=== PATIENT | male | born 1935 | race Asian ===

== ENCOUNTER 2018-01-28 11:17 | Emergency (ER) | payer OTHER ==
[2018-01-28] MEDS: diphenhydrAMINE HCL 25 MG CAPSULE PO (11:56)
== END 2018-01-28 12:41 | disposition home or self-care (01) ==
LOC: ER 11:17
DX: K13.0 Diseases of lips (principal)
CPT/HCPCS: 99283; Q0163

== ENCOUNTER 2018-04-09 12:20 | Inpatient (IN) | payer OTHER ==
[~2018-04-09] VITALS: Ht 170.2 cm; Wt 59.0 kg
[~2018-04-09 12:20] MED LIST: DIPH25CA58 PO
--- NOTE | 2018-04-09 12:41 | EKG ---
[facility] [address] [place] [address] Test Date: 2018-04-09 Test Time: 12:35:17 Pat Name: ISACC CHISHOLM Department: Room: Gender: M Hydrotherapist: : [id number] Requested By: BETINA CALHOUN Order Number: [id number] Reading MD: Milind Plasencia MD Measurements Intervals [place] Rate: 120 P: 38 WI: 140 QRS: -3 QRSD: 70 T: 39 QT: 306 QTc: 437 Interpretive Statements SINUS TACHYCARDIA NON-SPECIFIC ST/T CHANGES Electronically Signed On 04-13-2018 11:55:08 CDT by Milind Plasencia MD
[2018-04-09] MEDS ORDERED: ACETAMINOPHEN 500 MG TABLET PO ONE (13:15)
[2018-04-09] MEDS ORDERED: IV NORMAL SALINE 1000ML BAG 1,000 ML IV ONE (13:15)
--- NOTE | 2018-04-09 13:15 | RAD ---
Portable chest, 04/09/2018: HISTORY: Fever The heart size is normal. There are bilateral apical pleural-parenchymal opacities compatible with scarring. There are scattered streaky parenchymal opacities in both lungs, more so on the left base and right parahilar region. No pleural fluid is evident. IMPRESSION: Mild streaky atelectasis and/or pneumonitis in the left base and right parahilar region. There may be a component of scarring. Electronically signed by: Raman Guevara MD (04/09/2018 1:12 PM) [facility]
--- NOTE | 2018-04-09 13:29 | PHYS DOC ---
Past Medical History Past Medical History: No Pertinent History Past Surgical History: No Surgical History Alcohol Use: None Drug Use: None Adult General Chief Complaint Chief Complaint: FEVER HPI HPI Patient is a 83 year old male who is presenting to the emergency room with chief complaint of cough and body aches shortness of breath yellow sputum just feeling weak feeling feverish also having posterior head and neck pain for the last 3 or 4 days. Feels generally weak. Review of Systems Review of Systems Eyes: Denies change in visual acuity, redness, or eye pain [] GI: Denies abdominal pain, nausea, vomiting, bloody stools or diarrhea [] : Denies dysuria or hematuria [] Neurologic: Denies focal weakness or sensory changes [] Endocrine: Denies polyuria or polydipsia [] All other systems were reviewed and found to be within normal limits, except as documented in this note. Current Medications Current Medications Current Medications Medications (Trade) Dose Ordered Sig/Jeremias Start Time Stop Time Status Last Admin Dose Admin Acetaminophen (Tylenol) 1,000 mg 1X ONCE 04/09/18 13:15 04/09/18 13:16 DC 04/09/18 14:27 1,000 MG Azithromycin 250 ml @ 250 mls/hr 1X ONCE 04/09/18 14:30 04/09/18 15:29 DC 04/09/18 14:35 250 MLS/HR Ceftriaxone Sodium 50 ml @ 100 mls/hr 1X ONCE 04/09/18 14:45 04/09/18 15:14 DC 04/09/18 14:47 100 MLS/HR Sodium Chloride 1,000 ml @ 1,000 mls/hr 1X ONCE 04/09/18 13:15 04/09/18 14:14 DC 04/09/18 14:21 1,000 MLS/HR Allergies Allergies Allergies Coded Allergies Type Severity Reaction Last Updated Verified No Known Drug Allergies 01/28/18 No Physical Exam Physical Exam Constitutional: Well developed, well nourished, no acute distress, non-toxic appearance. [] HENT: Normocephalic, atraumatic, bilateral external ears normal, oropharynx moist, no oral exudates, nose normal. [] Eyes: PERRLA, EOMI, conjunctiva normal, no discharge. [] Neck: Normal range of motion, no tenderness, very supple, No stridor. [] Cardiovascular: Tachycardic no murmurs Lungs & Thorax: Coarse breath sounds bilaterally with rhonchi at the left lung base and faint wheezing noted Extremities: No tenderness, no cyanosis, no clubbing, ROM intact, no edema. [] Neurologic: Alert and oriented X 3, normal motor function, normal sensory function, no focal deficits noted. [] Psychologic: Affect normal, judgement normal, mood normal. [] Current Patient Data Vital Signs Vital Signs Date Time Temp Pulse Resp B/P (MAP) Pulse Ox O2 Delivery O2 Flow Rate FiO2 04/09/18 12:30 98.8 118 22 112/62 (79) 97 Room Air 2.0 98.8 Lab Values Laboratory Tests Test 04/09/18 14:19 White Blood Count 19.2 x10^3/uL (4.0-11.0) H Red Blood Count 3.62 x10^6/uL (4.30-5.70) L Hemoglobin 9.3 g/dL (13.0-17.5) L Hematocrit 28.7 % (39.0-53.0) L Mean Corpuscular Volume 79 fL (79-100) Mean Corpuscular Hemoglobin 26 pg (25-35) Mean Corpuscular Hemoglobin Concent 32 g/dL (31-37) Red Cell Distribution Width 15.3 % (11.5-14.5) H Platelet Count 276 x10^3/uL (140-400) Neutrophils (%) (Auto) 88 % (31-73) H Lymphocytes (%) (Auto) 4 % (24-48) L Monocytes (%) (Auto) 8 % (0-9) Eosinophils (%) (Auto) 0 % (0-3) Basophils (%) (Auto) 0 % (0-3) Neutrophils # (Auto) 17.0 x10^3uL (1.8-7.7) H Lymphocytes # (Auto) 0.7 x10^3/uL (1.0-4.8) L Monocytes # (Auto) 1.5 x10^3/uL (0.0-1.1) H Eosinophils # (Auto) 0.0 x10^3/uL (0.0-0.7) Basophils # (Auto) 0.0 x10^3/uL (0.0-0.2) Platelet Estimate Pending Prothrombin Time 14.4 SEC (11.7-14.0) H Prothrombin Time INR 1.2 (0.8-1.1) H Sodium Level 137 mmol/L (136-145) Potassium Level 3.9 mmol/L (3.5-5.1) Chloride Level 102 mmol/L (98-107) Carbon Dioxide Level 27 mmol/L (21-32) Anion Gap 8 (6-14) Blood Urea Nitrogen 12 mg/dL (8-26) Creatinine 1.2 mg/dL (0.7-1.3) Estimated GFR (Cockcroft-Gault) 58.0 BUN/Creatinine Ratio 10 (6-20) Glucose Level 102 mg/dL (70-99) H Lactic Acid Level 0.9 mmol/L (0.4-2.0) Calcium Level 8.6 mg/dL (8.5-10.1) Total Bilirubin 0.9 mg/dL (0.2-1.0) Aspartate Amino Transferase (AST) 19 U/L (15-37) Alanine Aminotransferase (ALT) 15 U/L (16-63) L Alkaline Phosphatase 76 U/L (46-116) Troponin I Quantitative < 0.017 ng/mL (0.000-0.055) CJ-Tbc-R-Type Natriuretic Peptide 549 pg/mL (0-449) H Total Protein 8.1 g/dL (6.4-8.2) Albumin 3.2 g/dL (3.4-5.0) L Albumin/Globulin Ratio 0.7 (1.0-1.7) L Lipase 103 U/L (73-393) Procalcitonin 3.86 ng/mL (0.00-0.10) H Laboratory Tests 04/09/18 14:19 Laboratory Tests 04/09/18 14:19 EKG EKG [EKG shows a sinus tachycardia rate of 120 QTC 437 no ischemic changes no STEMI interpreted by me the time of encounter. Radiology/Procedures Radiology/Procedures [] Impressions: Portable chest, 04/09/2018: HISTORY: Fever The heart size is normal. There are bilateral apical pleural-parenchymal opacities compatible with scarring. There are scattered streaky parenchymal opacities in both lungs, more so on the left base and right parahilar region. No pleural fluid is evident. IMPRESSION: Mild streaky atelectasis and/or pneumonitis in the left base and right parahilar region. There may be a component of scarring. Electronically signed by: Yared Guevara MD (04/09/2018 1:12 PM) [facility] DICTATED and SIGNED BY: YARED GUEVARA MD DATE: 04/09/18 1310 Course & Med Decision Making Course & Med Decision Making Pertinent Labs and Imaging studies reviewed. (See chart for details) This is an 83-year-old male is presenting to the emergency room with fever cough bodyaches tachycardia found to have hypoxia on initial evaluation in the mid 80s chest x-ray suggestive of a left basilar pneumonia this is community- acquired patient will be admitted to the hospital for further evaluation blood pressure is okay at this time. So tracks and azithromycin were given and the patient and the patient's GRanDson are agreeable to the plan. Dragon Disclaimer Dragon Disclaimer This electronic medical record was generated, in whole or in part, using a voice recognition dictation system. Departure Departure Impression: Primary Impression: Pneumonia Disposition: 09 ADMITTED INPATIENT Admitting Physician: Hiwot Parks Condition: STABLE Referrals: UNKNOWN PCP NAME (PCP) BETINA CALHOUN MD Apr 09, 2018 13:29
[2018-04-09] MEDS ORDERED: AZITHRMYCN 500MG IVPB FOR OMNI 250 ML IV ONE (14:30)
[2018-04-09 14:55] LABS: CALCIUM 8.6 mg/dL (8.5-10.1); CREATININE 1.2 mg/dL (0.7-1.3); POTASSIUM 3.9 mmol/L (3.5-5.1)
[2018-04-09 15:00] LABS: ALBUMIN 3.2 g/dL (3.4-5.0); ALBUMIN/GLOBULIN RATIO 0.7 (1.0-1.7); TOTAL BILIRUBIN 0.9 mg/dL (0.2-1.0); TOTAL PROTEIN 8.1 g/dL (6.4-8.2)
[2018-04-09 15:01] LABS: PROTHROMBIN TIME PATIENT 14.4 SEC (11.7-14.0)
[2018-04-09 15:03] LABS: BASO % 0 % (0-3); EOS % 0 % (0-3); HEMATOCRIT 28.7 % (39.0-53.0); HEMOGLOBIN 9.3 g/dL (13.0-17.5); LYMPH # 0.7 x10^3/uL (1.0-4.8); LYMPH % 4 % (24-48); MEAN CORPUSCULAR HEMOGLOBIN 26 pg (25-35); MEAN CORPUSCULAR HGB CONC 32 g/dL (31-37); MEAN CORPUSCULAR VOLUME 79 fL (79-100); MONO # 1.5 x10^3/uL (0.0-1.1); MONO % 8 % (0-9); NEUT % 88 % (31-73); PLATELET COUNT 276 x10^3/uL (140-400); RED BLOOD COUNT 3.62 x10^6/uL (4.30-5.70); RED CELL DISTRIBUTION WIDTH 15.3 % (11.5-14.5); WHITE BLOOD COUNT 19.2 x10^3/uL (4.0-11.0)
[2018-04-09 16:39] LABS: % BANDS 11 % (0-9); % LYMPHS 8 % (24-48); % METAS 1 % (0-0); % MONOS 6 % (0-10); % SEGS 74 % (35-66)
[2018-04-09 16:40] LABS: PLT ESTIMATE ADEQUATE (ADEQUATE)
[2018-04-09] MEDS ORDERED: MIRT30TA PO (17:04)
[2018-04-09 17:34] VITALS: BP 85/53
[2018-04-09 17:50] VITALS: BP 100/64
[2018-04-09] MEDS: ACETAMINOPHEN 325 MG TABLET. PO PRN (17:51)
[2018-04-09 19:00] VITALS: BP 91/56
[2018-04-09] MEDS: IPRATRPIUM/ALBUTEROL 0.5/2.5MG 3 ML NEBU. NEB SCH (20:00)
[2018-04-09] MEDS ORDERED: cefTRIAXone IV Push 1 GM VIAL. IVP SCH (20:00)
--- NOTE | 2018-04-09 21:05 | HP ---
ADMIT DATE: 04/09/2018 CHIEF COMPLAINT: Shortness of breath and cough. HISTORY OF PRESENT ILLNESS: The patient is a pleasant 83-year-old male who is from [facility]. He presented with shortness of breath and cough. He has got associated body aches, been occurring for several days. States he is feeling weak and feverish and had a productive cough. We did a chest x-ray in the ER showing pneumonia and he is also hypoxic. I have discussed the case with the ER physician. We are going to admit the patient and consult Pulmonary. PAST MEDICAL HISTORY: Depression. ALLERGIES: None. FAMILY HISTORY: Hypertension. SOCIAL HISTORY: Does not drink, smoke or take drugs. He is from [facility]. MEDICATIONS: Reviewed, please refer to the MRAD. He is on Remeron and Benadryl. REVIEW OF SYSTEMS: GENERAL: No history of weight change, weakness or fevers. SKIN: No bruising, hair changes or rashes. EYES: No blurred, double or loss of vision. NOSE AND THROAT: No history of nosebleeds, hoarseness or sore throat. HEART: No history of palpitations, chest pain or shortness of breath on exertion. PULMONARY: The patient complains of shortness breath and cough. GASTROINTESTINAL: Denies changes in appetite, nausea, vomiting, diarrhea or constipation. GENITOURINARY: No history of frequency, urgency, hesitancy or nocturia. NEUROLOGIC: Denies history of numbness, tingling, tremor or weakness. PSYCHIATRIC: No history of panic, anxiety or depression. ENDOCRINE: No history of heat or cold intolerance, polyuria or polydipsia. EXTREMITIES: Denies muscle weakness, joint pain, pain on walking or stiffness. PHYSICAL EXAMINATION: VITAL SIGNS: Temperature 98, pulse 80, respirations 18 AND blood pressure ranging from 103/66-85/53. GENERAL: He is alert and cooperative. His son is present. HEART: Normal S1 and S2. LUNGS: Coarse. ABDOMEN: Soft. EXTREMITIES: No edema. SKIN: No rashes. ENDOCRINE: No thyromegaly. LYMPHATICS: No cervical nodes. HEMATOPOIETIC: No bruising. LABORATORY DATA: White count is 19. RADIOLOGICAL DATA: Chest x-ray shows pneumonia. ASSESSMENT AND PLAN: Pneumonia and leukocytosis. The patient has been admitted. We will start IV antibiotics, breathing treatments and oxygen. Consult Pulmonary. Continue home meds, IV fluids, PT, OT and frequent labs. EVAN MENDIOLA DO DR: EDMUND/kehinde JOB#: [id number] / [id number]
[2018-04-09 23:00] VITALS: BP 98/53
[2018-04-10 03:59] VITALS: BP 100/60
[2018-04-10 07:00] VITALS: BP 100/57
[2018-04-10] MEDS: IPRATRPIUM/ALBUTEROL 0.5/2.5MG 3 ML NEBU. NEB SCH ×4 (07:13→19:26)
[2018-04-10] MEDS: ACETAMINOPHEN 325 MG TABLET. PO PRN (08:42)
[2018-04-10] MEDS ORDERED: MORPHINE SULFATE 2 MG/ML VIAL. IV PRN (08:45)
[2018-04-10] MEDS ORDERED: HYDROcodone/APAP 5/325MG 1 TAB TABLET PO PRN (08:45)
[2018-04-10] MEDS ORDERED: MIRT15TA2 PO (10:17)
--- NOTE | 2018-04-10 10:46 | PDOC ---
PROGRESS NOTES Chief Complaint Chief Complaint CAP pneumonia Never smoker Sepsis POA, no organ dysfunction Leukocytosis, tachycardia Accelerated hypertension POA History of Present Illness History of Present Illness NO Complaints, feels he is getting better WBC 19, hemoglobin 9, platelets okay Tachycardic still high 90s Never smoker Plan: Continue Rocephin I did add azithromycin today Recheck labs tomorrow PT OT Pro calcitonin is elevated, recheck lactate tomorrow and labs tomorrow If labs are better tomorrow, and feeling sampson, ambulating- well can discharge tomorrow. But I would not discharge him today. d/w with multiple family members at bedside Vitals Vitals Vital Signs Date Time Temp Pulse Resp B/P (MAP) Pulse Ox O2 Delivery O2 Flow Rate FiO2 04/10/18 07:13 99 Nasal Cannula 2.0 04/10/18 07:00 98.2 119 20 100/57 (71) 98.2 Physical Exam General: Alert, Oriented X3, Cooperative Heart: Regular rate Lungs: Crackles Abdomen: Normal bowel sounds, Soft Extremities: No clubbing, No cyanosis Skin: No rashes, No breakdown, No significant lesion Labs LABS Laboratory Tests Test 04/09/18 14:19 White Blood Count 19.2 x10^3/uL (4.0-11.0) Red Blood Count 3.62 x10^6/uL (4.30-5.70) Hemoglobin 9.3 g/dL (13.0-17.5) Hematocrit 28.7 % (39.0-53.0) Mean Corpuscular Volume 79 fL (79-100) Mean Corpuscular Hemoglobin 26 pg (25-35) Mean Corpuscular Hemoglobin Concent 32 g/dL (31-37) Red Cell Distribution Width 15.3 % (11.5-14.5) Platelet Count 276 x10^3/uL (140-400) Neutrophils (%) (Auto) 88 % (31-73) Lymphocytes (%) (Auto) 4 % (24-48) Monocytes (%) (Auto) 8 % (0-9) Eosinophils (%) (Auto) 0 % (0-3) Basophils (%) (Auto) 0 % (0-3) Neutrophils # (Auto) 17.0 x10^3uL (1.8-7.7) Lymphocytes # (Auto) 0.7 x10^3/uL (1.0-4.8) Monocytes # (Auto) 1.5 x10^3/uL (0.0-1.1) Eosinophils # (Auto) 0.0 x10^3/uL (0.0-0.7) Basophils # (Auto) 0.0 x10^3/uL (0.0-0.2) Segmented Neutrophils % 74 % (35-66) Band Neutrophils % 11 % (0-9) Lymphocytes % 8 % (24-48) Monocytes % 6 % (0-10) Metamyelocytes % 1 % (0-0) Platelet Estimate Adequate (ADEQUATE) Prothrombin Time 14.4 SEC (11.7-14.0) Prothromb Time International Ratio 1.2 (0.8-1.1) Sodium Level 137 mmol/L (136-145) Potassium Level 3.9 mmol/L (3.5-5.1) Chloride Level 102 mmol/L (98-107) Carbon Dioxide Level 27 mmol/L (21-32) Anion Gap 8 (6-14) Blood Urea Nitrogen 12 mg/dL (8-26) Creatinine 1.2 mg/dL (0.7-1.3) Estimated GFR (Cockcroft-Gault) 58.0 BUN/Creatinine Ratio 10 (6-20) Glucose Level 102 mg/dL (70-99) Lactic Acid Level 0.9 mmol/L (0.4-2.0) Calcium Level 8.6 mg/dL (8.5-10.1) Total Bilirubin 0.9 mg/dL (0.2-1.0) Aspartate Amino Transf (AST/SGOT) 19 U/L (15-37) Alanine Aminotransferase (ALT/SGPT) 15 U/L (16-63) Alkaline Phosphatase 76 U/L (46-116) Troponin I Quantitative < 0.017 ng/mL (0.000-0.055) WX-Otx-P-Type Natriuretic Peptide 549 pg/mL (0-449) Total Protein 8.1 g/dL (6.4-8.2) Albumin 3.2 g/dL (3.4-5.0) Albumin/Globulin Ratio 0.7 (1.0-1.7) Lipase 103 U/L (73-393) Procalcitonin 3.86 ng/mL (0.00-0.10) Review of Systems Review of Systems A 14 point ROS was completed with the following noted as positive: Other systems reviewed and negative. \CONSTITUTIONAL: No fever or chills EYES: No recent changes SKIN: No rash or itching CARDIOVASCULAR: No chest pain, syncope, palpitations, or edema RESPIRATORY: No SOB or cough GASTROINTESTINAL: No nausea, vomiting or abdominal pain NEUROLOGICAL: No headaches or weakness ENDOCRINE: No cold or heat intolerance GENITOURINARY: No urgency or frequency of urination MUSCULOSKELETAL: No back pain or joint pain LYMPHATICS: No enlarged lymph nodes PSYCHIATRIC: No anxiety or depression Assessment and Plan Assessmemt and Plan Problems Medical Problems: (1) Pneumonia Status: Acute Comment Review of Relevant I have reviewed the following items ananda (where applicable) has been applied. Labs Laboratory Tests Test 04/09/18 14:19 White Blood Count 19.2 x10^3/uL (4.0-11.0) Red Blood Count 3.62 x10^6/uL (4.30-5.70) Hemoglobin 9.3 g/dL (13.0-17.5) Hematocrit 28.7 % (39.0-53.0) Mean Corpuscular Volume 79 fL (79-100) Mean Corpuscular Hemoglobin 26 pg (25-35) Mean Corpuscular Hemoglobin Concent 32 g/dL (31-37) Red Cell Distribution Width 15.3 % (11.5-14.5) Platelet Count 276 x10^3/uL (140-400) Neutrophils (%) (Auto) 88 % (31-73) Lymphocytes (%) (Auto) 4 % (24-48) Monocytes (%) (Auto) 8 % (0-9) Eosinophils (%) (Auto) 0 % (0-3) Basophils (%) (Auto) 0 % (0-3) Neutrophils # (Auto) 17.0 x10^3uL (1.8-7.7) Lymphocytes # (Auto) 0.7 x10^3/uL (1.0-4.8) Monocytes # (Auto) 1.5 x10^3/uL (0.0-1.1) Eosinophils # (Auto) 0.0 x10^3/uL (0.0-0.7) Basophils # (Auto) 0.0 x10^3/uL (0.0-0.2) Segmented Neutrophils % 74 % (35-66) Band Neutrophils % 11 % (0-9) Lymphocytes % 8 % (24-48) Monocytes % 6 % (0-10) Metamyelocytes % 1 % (0-0) Platelet Estimate Adequate (ADEQUATE) Prothrombin Time 14.4 SEC (11.7-14.0) Prothromb Time International Ratio 1.2 (0.8-1.1) Sodium Level 137 mmol/L (136-145) Potassium Level 3.9 mmol/L (3.5-5.1) Chloride Level 102 mmol/L (98-107) Carbon Dioxide Level 27 mmol/L (21-32) Anion Gap 8 (6-14) Blood Urea Nitrogen 12 mg/dL (8-26) Creatinine 1.2 mg/dL (0.7-1.3) Estimated GFR (Cockcroft-Gault) 58.0 BUN/Creatinine Ratio 10 (6-20) Glucose Level 102 mg/dL (70-99) Lactic Acid Level 0.9 mmol/L (0.4-2.0) Calcium Level 8.6 mg/dL (8.5-10.1) Total Bilirubin 0.9 mg/dL (0.2-1.0) Aspartate Amino Transf (AST/SGOT) 19 U/L (15-37) Alanine Aminotransferase (ALT/SGPT) 15 U/L (16-63) Alkaline Phosphatase 76 U/L (46-116) Troponin I Quantitative < 0.017 ng/mL (0.000-0.055) MV-Hbu-C-Type Natriuretic Peptide 549 pg/mL (0-449) Total Protein 8.1 g/dL (6.4-8.2) Albumin 3.2 g/dL (3.4-5.0) Albumin/Globulin Ratio 0.7 (1.0-1.7) Lipase 103 U/L (73-393) Procalcitonin 3.86 ng/mL (0.00-0.10) Laboratory Tests Test 04/09/18 14:19 White Blood Count 19.2 x10^3/uL (4.0-11.0) Red Blood Count 3.62 x10^6/uL (4.30-5.70) Hemoglobin 9.3 g/dL (13.0-17.5) Hematocrit 28.7 % (39.0-53.0) Mean Corpuscular Volume 79 fL (79-100) Mean Corpuscular Hemoglobin 26 pg (25-35) Mean Corpuscular Hemoglobin Concent 32 g/dL (31-37) Red Cell Distribution Width 15.3 % (11.5-14.5) Platelet Count 276 x10^3/uL (140-400) Neutrophils (%) (Auto) 88 % (31-73) Lymphocytes (%) (Auto) 4 % (24-48) Monocytes (%) (Auto) 8 % (0-9) Eosinophils (%) (Auto) 0 % (0-3) Basophils (%) (Auto) 0 % (0-3) Neutrophils # (Auto) 17.0 x10^3uL (1.8-7.7) Lymphocytes # (Auto) 0.7 x10^3/uL (1.0-4.8) Monocytes # (Auto) 1.5 x10^3/uL (0.0-1.1) Eosinophils # (Auto) 0.0 x10^3/uL (0.0-0.7) Basophils # (Auto) 0.0 x10^3/uL (0.0-0.2) Segmented Neutrophils % 74 % (35-66) Band Neutrophils % 11 % (0-9) Lymphocytes % 8 % (24-48) Monocytes % 6 % (0-10) Metamyelocytes % 1 % (0-0) Platelet Estimate Adequate (ADEQUATE) Prothrombin Time 14.4 SEC (11.7-14.0) Prothromb Time International Ratio 1.2 (0.8-1.1) Sodium Level 137 mmol/L (136-145) Potassium Level 3.9 mmol/L (3.5-5.1) Chloride Level 102 mmol/L (98-107) Carbon Dioxide Level 27 mmol/L (21-32) Anion Gap 8 (6-14) Blood Urea Nitrogen 12 mg/dL (8-26) Creatinine 1.2 mg/dL (0.7-1.3) Estimated GFR (Cockcroft-Gault) 58.0 BUN/Creatinine Ratio 10 (6-20) Glucose Level 102 mg/dL (70-99) Lactic Acid Level 0.9 mmol/L (0.4-2.0) Calcium Level 8.6 mg/dL (8.5-10.1) Total Bilirubin 0.9 mg/dL (0.2-1.0) Aspartate Amino Transf (AST/SGOT) 19 U/L (15-37) Alanine Aminotransferase (ALT/SGPT) 15 U/L (16-63) Alkaline Phosphatase 76 U/L (46-116) Troponin I Quantitative < 0.017 ng/mL (0.000-0.055) NT-Wcf-U-Type Natriuretic Peptide 549 pg/mL (0-449) Total Protein 8.1 g/dL (6.4-8.2) Albumin 3.2 g/dL (3.4-5.0) Albumin/Globulin Ratio 0.7 (1.0-1.7) Lipase 103 U/L (73-393) Procalcitonin 3.86 ng/mL (0.00-0.10) Medications Current Medications Sodium Chloride 1,000 ml @ 1,000 mls/hr 1X ONCE IV Last administered on at 14:21; Start 04/09/18 at 13:15; Stop 04/09/18 at 14:14; Status DC Acetaminophen (Tylenol) 1,000 mg 1X ONCE PO Last administered on 04/09/18at 14: 27; Start 04/09/18 at 13:15; Stop 04/09/18 at 13:16; Status DC Ceftriaxone Sodium 50 ml @ 100 mls/hr 1X ONCE IV ; Start 04/09/18 at 14:00; Stop 04/09/18 at 14:29; Status DC Azithromycin 250 ml @ 250 mls/hr 1X ONCE IV Last administered on 04/09/18at 14 :35; Start 04/09/18 at 14:30; Stop 04/09/18 at 15:29; Status DC Ceftriaxone Sodium 50 ml @ 100 mls/hr 1X ONCE IV Last administered on at 14:47; Start 04/09/18 at 14:45; Stop 04/09/18 at 15:14; Status DC Acetaminophen (Tylenol) 650 mg PRN Q6HRS PRN PO MILD PAIN / TEMP Last administered on 04/10/18at 08:42; Start 04/09/18 at 17:00 Ceftriaxone Sodium 1 gm/ Dextrose 50 ml @ 100 mls/hr Q24H IV ; Start 04/09/18 at 19:45; Status UNV Albuterol/ Ipratropium (Duoneb) 3 ml RTQID NEB Last administered on 04/10/18at 07 :13; Start 04/09/18 at 20:00 Ceftriaxone Sodium (Rocephin) 1 gm Q24H IVP ; Start 04/09/18 at 20:00; Stop at 20:00; Status DC Ceftriaxone Sodium (Rocephin) 1 gm Q24H IVP ; Start 04/10/18 at 15:00 Guaifenesin (Robitussin Dm) 10 ml PRN Q6HRS PRN PO COUGH; Start 04/10/18 at 08: 45 Acetaminophen/ Hydrocodone Bitart (Lortab 5/325) 1 tab PRN Q4HRS PRN PO PAIN; Start 04/10/18 at 08:45 Morphine Sulfate (Morphine Sulfate) 1 mg PRN Q2HR PRN IV PAIN; Start 04/10/18 at 08:45 Diphenhydramine HCl (Benadryl) 25 mg Q8HRS PO ; Start 04/10/18 at 14:00; Stop 04/10/18 at 14:00; Status DC Non-Formulary Medication (Mirtazapine (Remeron)) 30 mg BIDAC PO ; Start 04/10/18 at 16:30; Status UNV Diphenhydramine HCl (Benadryl) 25 mg Q8HRS PRN PO itvh; Start 04/10/18 at 14:00 Mirtazapine (Remeron) 7.5 mg BIDACLD PO ; Start 04/10/18 at 11:30 Active Scripts Active Benadryl (Diphenhydramine Hcl) 25 Mg Capsule 25 Mg PO Q8HRS Reported Remeron (Mirtazapine) 15 Mg Tab.rapdis 7.5 Mg PO BIDACLD Vitals/I & O Vital Sign - Last 24 Hours 04/09/18 04/09/18 04/09/18 04/09/18 12:30 14:30 15:00 15:30 Temp 98.8 98.8 Pulse 118 104 104 102 Resp 22 15 17 20 B/P (MAP) 112/62 (79) 118/68 (85) 103/66 (78) 93/59 (70) Pulse Ox 97 97 97 97 O2 Delivery Room Air Nasal Cannula Nasal Cannula Nasal Cannula O2 Flow Rate 2.0 2.0 2.0 2.0 04/09/18 04/09/18 04/09/18 04/09/18 16:00 17:22 17:34 17:50 Temp 98.5 98.5 Pulse 94 89 92 Resp 18 18 B/P (MAP) 100/60 (73) 85/53 (64) 100/64 (76) Pulse Ox 99 95 O2 Delivery Nasal Cannula Nasal Cannula Nasal Cannula O2 Flow Rate 2.0 2.0 2.0 04/09/18 04/09/18 04/09/18 04/09/18 19:00 20:15 20:30 23:00 Temp 98.2 98.3 98.2 98.3 Pulse 84 99 Resp 18 16 B/P (MAP) 91/56 (68) 98/53 (68) Pulse Ox 96 94 91 O2 Delivery Room Air Nasal Cannula Nasal Cannula Room Air O2 Flow Rate 3.0 2.0 04/10/18 04/10/18 04/10/18 03:59 07:00 07:13 Temp 98.4 98.2 98.4 98.2 Pulse 97 119 Resp 19 20 B/P (MAP) 100/60 (73) 100/57 (71) Pulse Ox 95 96 99 O2 Delivery Nasal Cannula Nasal Cannula Nasal Cannula O2 Flow Rate 2.0 2.0 2.0 Intake and Output 04/09/18 04/09/18 04/10/18 15:00 23:00 07:00 Intake Total 1600 ml Output Total 0 ml Balance 1600 ml 0 ml LYDIA MEJIA MD Apr 10, 2018 10:46
[2018-04-10 11:19] VITALS: BP 99/60
--- NOTE | 2018-04-10 13:33 | PDOC ---
PULMONARY PROGRESS NOTES Vitals Vital Signs Date Time Temp Pulse Resp B/P (MAP) Pulse Ox O2 Delivery O2 Flow Rate FiO2 04/10/18 11:36 99 Nasal Cannula 2.0 04/10/18 11:19 98.4 100 20 99/60 (73) 98.4 Lungs: Crackles Labs Laboratory Tests Test 04/09/18 14:19 White Blood Count 19.2 x10^3/uL (4.0-11.0) Red Blood Count 3.62 x10^6/uL (4.30-5.70) Hemoglobin 9.3 g/dL (13.0-17.5) Hematocrit 28.7 % (39.0-53.0) Mean Corpuscular Volume 79 fL (79-100) Mean Corpuscular Hemoglobin 26 pg (25-35) Mean Corpuscular Hemoglobin Concent 32 g/dL (31-37) Red Cell Distribution Width 15.3 % (11.5-14.5) Platelet Count 276 x10^3/uL (140-400) Neutrophils (%) (Auto) 88 % (31-73) Lymphocytes (%) (Auto) 4 % (24-48) Monocytes (%) (Auto) 8 % (0-9) Eosinophils (%) (Auto) 0 % (0-3) Basophils (%) (Auto) 0 % (0-3) Neutrophils # (Auto) 17.0 x10^3uL (1.8-7.7) Lymphocytes # (Auto) 0.7 x10^3/uL (1.0-4.8) Monocytes # (Auto) 1.5 x10^3/uL (0.0-1.1) Eosinophils # (Auto) 0.0 x10^3/uL (0.0-0.7) Basophils # (Auto) 0.0 x10^3/uL (0.0-0.2) Segmented Neutrophils % 74 % (35-66) Band Neutrophils % 11 % (0-9) Lymphocytes % 8 % (24-48) Monocytes % 6 % (0-10) Metamyelocytes % 1 % (0-0) Platelet Estimate Adequate (ADEQUATE) Prothrombin Time 14.4 SEC (11.7-14.0) Prothromb Time International Ratio 1.2 (0.8-1.1) Sodium Level 137 mmol/L (136-145) Potassium Level 3.9 mmol/L (3.5-5.1) Chloride Level 102 mmol/L (98-107) Carbon Dioxide Level 27 mmol/L (21-32) Anion Gap 8 (6-14) Blood Urea Nitrogen 12 mg/dL (8-26) Creatinine 1.2 mg/dL (0.7-1.3) Estimated GFR (Cockcroft-Gault) 58.0 BUN/Creatinine Ratio 10 (6-20) Glucose Level 102 mg/dL (70-99) Lactic Acid Level 0.9 mmol/L (0.4-2.0) Calcium Level 8.6 mg/dL (8.5-10.1) Total Bilirubin 0.9 mg/dL (0.2-1.0) Aspartate Amino Transf (AST/SGOT) 19 U/L (15-37) Alanine Aminotransferase (ALT/SGPT) 15 U/L (16-63) Alkaline Phosphatase 76 U/L (46-116) Troponin I Quantitative < 0.017 ng/mL (0.000-0.055) WH-Bbr-W-Type Natriuretic Peptide 549 pg/mL (0-449) Total Protein 8.1 g/dL (6.4-8.2) Albumin 3.2 g/dL (3.4-5.0) Albumin/Globulin Ratio 0.7 (1.0-1.7) Lipase 103 U/L (73-393) Procalcitonin 3.86 ng/mL (0.00-0.10) Laboratory Tests Test 04/09/18 14:19 White Blood Count 19.2 x10^3/uL (4.0-11.0) Red Blood Count 3.62 x10^6/uL (4.30-5.70) Hemoglobin 9.3 g/dL (13.0-17.5) Hematocrit 28.7 % (39.0-53.0) Mean Corpuscular Volume 79 fL (79-100) Mean Corpuscular Hemoglobin 26 pg (25-35) Mean Corpuscular Hemoglobin Concent 32 g/dL (31-37) Red Cell Distribution Width 15.3 % (11.5-14.5) Platelet Count 276 x10^3/uL (140-400) Neutrophils (%) (Auto) 88 % (31-73) Lymphocytes (%) (Auto) 4 % (24-48) Monocytes (%) (Auto) 8 % (0-9) Eosinophils (%) (Auto) 0 % (0-3) Basophils (%) (Auto) 0 % (0-3) Neutrophils # (Auto) 17.0 x10^3uL (1.8-7.7) Lymphocytes # (Auto) 0.7 x10^3/uL (1.0-4.8) Monocytes # (Auto) 1.5 x10^3/uL (0.0-1.1) Eosinophils # (Auto) 0.0 x10^3/uL (0.0-0.7) Basophils # (Auto) 0.0 x10^3/uL (0.0-0.2) Segmented Neutrophils % 74 % (35-66) Band Neutrophils % 11 % (0-9) Lymphocytes % 8 % (24-48) Monocytes % 6 % (0-10) Metamyelocytes % 1 % (0-0) Platelet Estimate Adequate (ADEQUATE) Prothrombin Time 14.4 SEC (11.7-14.0) Prothromb Time International Ratio 1.2 (0.8-1.1) Sodium Level 137 mmol/L (136-145) Potassium Level 3.9 mmol/L (3.5-5.1) Chloride Level 102 mmol/L (98-107) Carbon Dioxide Level 27 mmol/L (21-32) Anion Gap 8 (6-14) Blood Urea Nitrogen 12 mg/dL (8-26) Creatinine 1.2 mg/dL (0.7-1.3) Estimated GFR (Cockcroft-Gault) 58.0 BUN/Creatinine Ratio 10 (6-20) Glucose Level 102 mg/dL (70-99) Lactic Acid Level 0.9 mmol/L (0.4-2.0) Calcium Level 8.6 mg/dL (8.5-10.1) Total Bilirubin 0.9 mg/dL (0.2-1.0) Aspartate Amino Transf (AST/SGOT) 19 U/L (15-37) Alanine Aminotransferase (ALT/SGPT) 15 U/L (16-63) Alkaline Phosphatase 76 U/L (46-116) Troponin I Quantitative < 0.017 ng/mL (0.000-0.055) XG-Rir-Z-Type Natriuretic Peptide 549 pg/mL (0-449) Total Protein 8.1 g/dL (6.4-8.2) Albumin 3.2 g/dL (3.4-5.0) Albumin/Globulin Ratio 0.7 (1.0-1.7) Lipase 103 U/L (73-393) Procalcitonin 3.86 ng/mL (0.00-0.10) Medications Active Scripts Medications Dose Route/Sig Max Daily Dose Days Date Category Remeron (Mirtazapine) 15 Mg Tab.rapdis 7.5 Mg PO BIDACLD 04/10/18 Reported Benadryl (Diphenhydramine Hcl) 25 Mg Capsule 25 Mg PO Q8HRS 01/28/18 Rx Impression . FULL CONSULT DICTATED PNEUMONIA AGREE WITH CURRENT RX THANKS LYSSA PATEL MD Apr 10, 2018 13:33
[2018-04-10] MEDS ORDERED: diphenhydrAMINE HCL 25 MG CAPSULE PO PRN (14:00)
[2018-04-10] MEDS ORDERED: diphenhydrAMINE HCL 25 MG CAPSULE PO SCH (14:00)
[2018-04-10 15:00] VITALS: BP 114/64
[2018-04-10] MEDS: cefTRIAXone IV Push 1 GM VIAL. IVP SCH (15:01)
[2018-04-10] MEDS: MIRTAZAPINE 7.5 MG TABLET. PO SCH ×2 (15:01→16:30)
[2018-04-10] MEDS: AZITHROMYCIN 500 MG in IV NORMAL SALINE 250ML 250 ML IV SCH (15:02)
[2018-04-10] MEDS ORDERED: MIRTAZAPINE 30 MG PO SCH (16:30)
[2018-04-10 19:00] VITALS: BP 130/79
[2018-04-10] MEDS: guaiFENesin DM 200MG/20MG 10 ML SYRUP PO PRN (19:47)
[2018-04-10] MEDS: LACTOBACILLUS RHAMNOSUS GG 1 CAPSULE. PO SCH (20:53)
[2018-04-10] MEDS ORDERED: IBUPROFEN 600 MG TABLET. PO PRN (21:00)
[2018-04-10 23:00] VITALS: BP 138/78
--- NOTE | 2018-04-11 02:53 | CONS ---
DATE OF CONSULTATION: 04/10/2018 ATTENDING PHYSICIAN: Dr. Rogers. REASON FOR CONSULTATION: The patient seen in pulmonary consultation at the request of Dr. Rogers for abnormal x-ray. HISTORY OF PRESENT ILLNESS: The patient is an 83-year-old that presented with multiple constitutional complaints, cough, body ache, shortness of breath, sputum production. He is from [facility]. His family was at the bedside translating. He came in with the above complaints. No hemoptysis. He has never smoked. The chest x-ray was obtained in the Emergency Room revealing left lower lobe and right perihilar infiltrate. I was asked to see him in consultation. No nausea, vomiting, diarrhea. PAST MEDICAL HISTORY: Otherwise remarkable for depression. ALLERGIES: No known drug allergies. FAMILY HISTORY: Hypertension. SOCIAL HISTORY: He has never smoked. Denies any alcohol intake. CURRENT MEDICATIONS: List was reviewed. REVIEW OF SYSTEMS: CONSTITUTIONAL: No fever or chills. EYES: No change in visual acuity. HEENT: No nasal congestion or sore throat. PULMONARY: As indicated above. CARDIOVASCULAR: No chest pain. No pressure. GASTROINTESTINAL: No nausea, vomiting, or diarrhea. GENITOURINARY: No dysuria or frequency. MUSCULOSKELETAL: No localized muscle aches or joint pains. SKIN: No new skin rashes. MEDICATION: Medication list was reviewed. PHYSICAL EXAMINATION: GENERAL: The patient was in no respiratory distress. VITAL SIGNS: T-max was 98.5 and 98.8. HEENT: Eyes, the sclerae were nonicteric. NECK: Jugular venous distention was not elevated. No lymphadenopathy. CHEST: Full expansion. LUNGS: Crackles in the bases, otherwise no wheezes. CARDIOVASCULAR: Regular rate and rhythm with S1, S2, no S3. ABDOMEN: Soft, nontender, nondistended. EXTREMITIES: No clubbing, cyanosis or edema. IMPRESSION: 1. Acute respiratory failure. 2. Pneumonia. 3. Abnormal x-ray. PLAN: 1. Continue oxygen supplementation. 2. IV antibiotics. 3. The patient presented in the Emergency Room with O2 sats of 80%. We will perform a 6-minute walk prior to discharge. I do appreciate the privilege in sharing this patient's care. LYSSA PATEL MD DR: KATE/kehinde JOB#: [id number] / [id number]
[2018-04-11 03:00] VITALS: BP 137/69
[2018-04-11 03:40] LABS: BILIRUBIN,URINE NEGATIVE (NEG); CLARITY,URINE CLEAR; COLOR,URINE YELLOW; NITRITE,URINE NEGATIVE (NEG); PH,URINE 6.5; PROTEIN,URINE NEGATIVE (NEG-TRACE); UROBILINOGEN,URINE 0.2 mg/dL (0.2 mg/dL)
[2018-04-11 03:59] LABS: BACTERIA,URINE 0 /HPF (0-FEW); RBC,URINE OCC /HPF (0-2); SQUAMOUS EPITHELIAL CELL,UR OCC /LPF; WBC,URINE OCC /HPF (0-4)
[2018-04-11 05:10] LABS: BASO % 0 % (0-3); EOS # 0.1 x10^3/uL (0.0-0.7); EOS % 1 % (0-3); HEMATOCRIT 24.4 % (39.0-53.0); HEMOGLOBIN 7.9 g/dL (13.0-17.5); LYMPH # 0.9 x10^3/uL (1.0-4.8); LYMPH % 11 % (24-48); MEAN CORPUSCULAR HEMOGLOBIN 26 pg (25-35); MEAN CORPUSCULAR HGB CONC 33 g/dL (31-37); MEAN CORPUSCULAR VOLUME 79 fL (79-100); MONO # 0.8 x10^3/uL (0.0-1.1); MONO % 10 % (0-9); NEUT # 6.4 x10^3uL (1.8-7.7); NEUT % 78 % (31-73); PLATELET COUNT 236 x10^3/uL (140-400); RED BLOOD COUNT 3.08 x10^6/uL (4.30-5.70); RED CELL DISTRIBUTION WIDTH 15.4 % (11.5-14.5); WHITE BLOOD COUNT 8.2 x10^3/uL (4.0-11.0)
[2018-04-11 05:21] LABS: CALCIUM 7.9 mg/dL (8.5-10.1); CREATININE 0.9 mg/dL (0.7-1.3); GFR 80.8; POTASSIUM 3.2 mmol/L (3.5-5.1)
[2018-04-11 07:00] VITALS: BP 130/76
[2018-04-11] MEDS: IPRATRPIUM/ALBUTEROL 0.5/2.5MG 3 ML NEBU. NEB SCH ×4 (07:22→19:39)
[2018-04-11] MEDS ORDERED: POTASSIUM CHLORIDE 20 MEQ TABLET.ER. PO ONE (09:30)
[2018-04-11] MEDS ORDERED: BENZ100C PO (09:35)
[2018-04-11] MEDS ORDERED: PROAIR HFA8.5 GM INH (09:35)
[2018-04-11] MEDS ORDERED: LEVO500T59 PO (09:35)
--- NOTE | 2018-04-11 09:40 | PDOC3 ---
Discharge Summary Visit Information Date of Admission: Apr 09, 2018 Date of Discharge: Apr 11, 2018 Admitting Diagnosis Comment: CAP pneumonia Never smoker Sepsis POA, no organ dysfunction Leukocytosis, tachycardia Accelerated hypertension POA TACHYCARDIA, SINUS Final Diagnosis Problems Medical Problems: (1) Pneumonia Status: Acute Brief Hospital Course Allergies Allergies Coded Allergies Type Severity Reaction Last Updated Verified No Known Drug Allergies 01/28/18 No Vital Signs Vital Signs Date Time Temp Pulse Resp B/P (MAP) Pulse Ox O2 Delivery O2 Flow Rate FiO2 04/11/18 08:00 Nasal Cannula 04/11/18 07:22 97 2.0 04/11/18 07:00 98.4 101 22 130/76 (94) 98.4 Lab Results Laboratory Tests Test 04/09/18 14:19 04/11/18 03:21 04/11/18 03:45 White Blood Count 19.2 x10^3/uL (4.0-11.0) 8.2 x10^3/uL (4.0-11.0) Red Blood Count 3.62 x10^6/uL (4.30-5.70) 3.08 x10^6/uL (4.30-5.70) Hemoglobin 9.3 g/dL (13.0-17.5) 7.9 g/dL (13.0-17.5) Hematocrit 28.7 % (39.0-53.0) 24.4 % (39.0-53.0) Mean Corpuscular Volume 79 fL (79-100) 79 fL (79-100) Mean Corpuscular Hemoglobin 26 pg (25-35) 26 pg (25-35) Mean Corpuscular Hemoglobin Concent 32 g/dL (31-37) 33 g/dL (31-37) Red Cell Distribution Width 15.3 % (11.5-14.5) 15.4 % (11.5-14.5) Platelet Count 276 x10^3/uL (140-400) 236 x10^3/uL (140-400) Neutrophils (%) (Auto) 88 % (31-73) 78 % (31-73) Lymphocytes (%) (Auto) 4 % (24-48) 11 % (24-48) Monocytes (%) (Auto) 8 % (0-9) 10 % (0-9) Eosinophils (%) (Auto) 0 % (0-3) 1 % (0-3) Basophils (%) (Auto) 0 % (0-3) 0 % (0-3) Neutrophils # (Auto) 17.0 x10^3uL (1.8-7.7) 6.4 x10^3uL (1.8-7.7) Lymphocytes # (Auto) 0.7 x10^3/uL (1.0-4.8) 0.9 x10^3/uL (1.0-4.8) Monocytes # (Auto) 1.5 x10^3/uL (0.0-1.1) 0.8 x10^3/uL (0.0-1.1) Eosinophils # (Auto) 0.0 x10^3/uL (0.0-0.7) 0.1 x10^3/uL (0.0-0.7) Basophils # (Auto) 0.0 x10^3/uL (0.0-0.2) 0.0 x10^3/uL (0.0-0.2) Segmented Neutrophils % 74 % (35-66) Band Neutrophils % 11 % (0-9) Lymphocytes % 8 % (24-48) Monocytes % 6 % (0-10) Metamyelocytes % 1 % (0-0) Platelet Estimate Adequate (ADEQUATE) Prothrombin Time 14.4 SEC (11.7-14.0) Prothromb Time International Ratio 1.2 (0.8-1.1) Sodium Level 137 mmol/L (136-145) 138 mmol/L (136-145) Potassium Level 3.9 mmol/L (3.5-5.1) 3.2 mmol/L (3.5-5.1) Chloride Level 102 mmol/L (98-107) 105 mmol/L (98-107) Carbon Dioxide Level 27 mmol/L (21-32) 26 mmol/L (21-32) Anion Gap 8 (6-14) 7 (6-14) Blood Urea Nitrogen 12 mg/dL (8-26) 7 mg/dL (8-26) Creatinine 1.2 mg/dL (0.7-1.3) 0.9 mg/dL (0.7-1.3) Estimated GFR (Cockcroft-Gault) 58.0 80.8 BUN/Creatinine Ratio 10 (6-20) Glucose Level 102 mg/dL (70-99) 109 mg/dL (70-99) Lactic Acid Level 0.9 mmol/L (0.4-2.0) 0.5 mmol/L (0.4-2.0) Calcium Level 8.6 mg/dL (8.5-10.1) 7.9 mg/dL (8.5-10.1) Total Bilirubin 0.9 mg/dL (0.2-1.0) Aspartate Amino Transf (AST/SGOT) 19 U/L (15-37) Alanine Aminotransferase (ALT/SGPT) 15 U/L (16-63) Alkaline Phosphatase 76 U/L (46-116) Troponin I Quantitative < 0.017 ng/mL (0.000-0.055) SR-Foa-K-Type Natriuretic Peptide 549 pg/mL (0-449) Total Protein 8.1 g/dL (6.4-8.2) Albumin 3.2 g/dL (3.4-5.0) Albumin/Globulin Ratio 0.7 (1.0-1.7) Lipase 103 U/L (73-393) Procalcitonin 3.86 ng/mL (0.00-0.10) Urine Collection Type Unknown Urine Color Yellow Urine Clarity Clear Urine pH 6.5 Urine Specific [place] 1.010 Urine Protein Negative mg/dL (NEG-TRACE) Urine Glucose (UA) Negative mg/dL (NEG) Urine Ketones (Stick) Negative mg/dL (NEG) Urine Blood Negative (NEG) Urine Nitrite Negative (NEG) Urine Bilirubin Negative (NEG) Urine Urobilinogen Dipstick 0.2 mg/dL (0.2 mg/dL) Urine Leukocyte Esterase Negative (NEG) Urine RBC Occ /HPF (0-2) Urine WBC Occ /HPF (0-4) Urine Squamous Epithelial Cells Occ /LPF Urine Bacteria 0 /HPF (0-FEW) Urine Mucus Slight /LPF Erythrocyte Sedimentation Rate 71 (0-15) Laboratory Tests Test 04/11/18 03:21 04/11/18 03:45 Urine Collection Type Unknown Urine Color Yellow Urine Clarity Clear Urine pH 6.5 Urine Specific [place] 1.010 Urine Protein Negative mg/dL (NEG-TRACE) Urine Glucose (UA) Negative mg/dL (NEG) Urine Ketones (Stick) Negative mg/dL (NEG) Urine Blood Negative (NEG) Urine Nitrite Negative (NEG) Urine Bilirubin Negative (NEG) Urine Urobilinogen Dipstick 0.2 mg/dL (0.2 mg/dL) Urine Leukocyte Esterase Negative (NEG) Urine RBC Occ /HPF (0-2) Urine WBC Occ /HPF (0-4) Urine Squamous Epithelial Cells Occ /LPF Urine Bacteria 0 /HPF (0-FEW) Urine Mucus Slight /LPF White Blood Count 8.2 x10^3/uL (4.0-11.0) Red Blood Count 3.08 x10^6/uL (4.30-5.70) Hemoglobin 7.9 g/dL (13.0-17.5) Hematocrit 24.4 % (39.0-53.0) Mean Corpuscular Volume 79 fL (79-100) Mean Corpuscular Hemoglobin 26 pg (25-35) Mean Corpuscular Hemoglobin Concent 33 g/dL (31-37) Red Cell Distribution Width 15.4 % (11.5-14.5) Platelet Count 236 x10^3/uL (140-400) Neutrophils (%) (Auto) 78 % (31-73) Lymphocytes (%) (Auto) 11 % (24-48) Monocytes (%) (Auto) 10 % (0-9) Eosinophils (%) (Auto) 1 % (0-3) Basophils (%) (Auto) 0 % (0-3) Neutrophils # (Auto) 6.4 x10^3uL (1.8-7.7) Lymphocytes # (Auto) 0.9 x10^3/uL (1.0-4.8) Monocytes # (Auto) 0.8 x10^3/uL (0.0-1.1) Eosinophils # (Auto) 0.1 x10^3/uL (0.0-0.7) Basophils # (Auto) 0.0 x10^3/uL (0.0-0.2) Erythrocyte Sedimentation Rate 71 (0-15) Sodium Level 138 mmol/L (136-145) Potassium Level 3.2 mmol/L (3.5-5.1) Chloride Level 105 mmol/L (98-107) Carbon Dioxide Level 26 mmol/L (21-32) Anion Gap 7 (6-14) Blood Urea Nitrogen 7 mg/dL (8-26) Creatinine 0.9 mg/dL (0.7-1.3) Estimated GFR (Cockcroft-Gault) 80.8 Glucose Level 109 mg/dL (70-99) Lactic Acid Level 0.5 mmol/L (0.4-2.0) Calcium Level 7.9 mg/dL (8.5-10.1) Brief Hospital Course Mr. David is a 83 old male with limited Nepali, admitted for community -acquired pneumonia. Never smoker. Always tachycardic. Initially had a white count of 19 that has gone to normal after Rocephin and azithromycin. No known drug allergies. Some mild hypokalemia. Elevated pro-calcitonin. He did well 3 laps with PT with no PT needs in no need for O2. Still remains tachycardic. He can either stay one more night or home tomorrow but I have Rx'd Levaquin for 10 days metoprolol extended release for the tachycardia just for 30 days needs to follow-up with PCP about this. I assume the tachycardia is from the CAP. Some pro-air and Medrol Dosepak too on chart. Comanage with pulmonary. Will await pulmonary rounds if okay to DC. Again patient either stay one more day or discharge later. We'll discuss with family who speaks Nepali later when they come . Consults pulmo Procedures performed none Discharge Information Condition at Discharge: Improved, Stable Disposition/Orders: D/C to Home Scheduled Benzonatate (Tessalon Perle) 100 Mg Capsule, 1 CAP PO TID, #21 Prescribed by: LYDIA MEJIA on 04/11/18 0935 Diphenhydramine Hcl (Benadryl) 25 Mg Capsule, 25 MG PO Q8HRS, #10 Prescribed by: SANTOS PRADHAN APRN on 01/28/18 1232 Last Action: Continued on 04/10/18 0843 by LYDIA MEJIA Levofloxacin (Levaquin) 500 Mg Tablet, 1 TAB PO DAILY, #10 Prescribed by: LYDIA MEJIA on 04/11/18 0935 Mirtazapine (Remeron) 15 Mg Tab.rapdis, 7.5 MG PO BIDACLD, (Reported) Entered as Reported by: DONNA BRICE on 04/10/18 1017 Last Taken: 7.5MG. BID on 04/10/18 1017 Last Action: Continued on 04/10/18 1018 by DONNA BRICE Scheduled PRN Albuterol Sulfate (Proair Hfa Inhaler) 8.5 Gm Hfa.aer.ad, 1 PUFF INH PRN Q6HRS PRN for SHORTNESS OF BREATH for 30 Days, Ref 0 Prescribed by: LYDIA MEJIA on 04/11/18 0935 Discontinued Medications Mirtazapine (Remeron) 30 Mg Tablet, 30 MG PO BIDAC, (Reported) Entered as Reported by: AUDREY PIRES on 04/09/18 1704 Last Taken: Unknown Dose on 04/09/18 0900 Last Action: Discontinued on 04/10 101 by LYDIA VILLALTA MD Apr 11, 2018 09:40
[2018-04-11] MEDS ORDERED: METOPROLOL SUCC 24HR ER 25 MG TAB.ER.24H. PO ONE (10:00)
[2018-04-11] MEDS ORDERED: IV NORMAL SALINE 1000ML BAG 1,000 ML IV ONE (10:00)
[2018-04-11] MEDS ORDERED: IBUPROFEN 600 MG TABLET. PO ONE (10:00)
--- NOTE | 2018-04-11 10:01 | PDOC ---
Provider Note Provider Note Hold discharge Couple of loose ends Discussed with family speaks Urdu, patient complains of headache, some back pain. Did well with physical therapy though, 3 laps with no PT or O2 needs Lactate is now normal. But sedimentation rate 70s, pro-calcitonin elevated. Tachycardia 100s. I did start metoprolol extended release today Check TSH Hemoglobin did drop to 7.9 from 9 as well as the rest of the other labs - not on nay IVF Check stool occult IVF x 1 to help tachy - but then again he has CAP GIve the ibuprofen Discussed with LYDIA Levin RN, MD Apr 11, 2018 10:01
--- NOTE | 2018-04-11 10:10 | PDOC ---
PULMONARY PROGRESS NOTES Subjective PT STILL WITH MULTIPLE COMPLAINTS NOT MORE SOA Vitals Vital Signs Date Time Temp Pulse Resp B/P (MAP) Pulse Ox O2 Delivery O2 Flow Rate FiO2 04/11/18 08:00 Nasal Cannula 04/11/18 07:22 97 2.0 04/11/18 07:00 98.4 101 22 130/76 (94) 98.4 ROS: No Nausea, No Chest Pain, No Abdominal Pain, No Increase Cough General: Alert Lungs: Crackles Cardiovascular: S1, S2 Abdomen: Soft Neuro Exam: Alert Extremities: No Edema Skin: Warm Labs Laboratory Tests Test 04/09/18 14:19 04/11/18 03:21 04/11/18 03:45 White Blood Count 19.2 x10^3/uL (4.0-11.0) 8.2 x10^3/uL (4.0-11.0) Red Blood Count 3.62 x10^6/uL (4.30-5.70) 3.08 x10^6/uL (4.30-5.70) Hemoglobin 9.3 g/dL (13.0-17.5) 7.9 g/dL (13.0-17.5) Hematocrit 28.7 % (39.0-53.0) 24.4 % (39.0-53.0) Mean Corpuscular Volume 79 fL (79-100) 79 fL (79-100) Mean Corpuscular Hemoglobin 26 pg (25-35) 26 pg (25-35) Mean Corpuscular Hemoglobin Concent 32 g/dL (31-37) 33 g/dL (31-37) Red Cell Distribution Width 15.3 % (11.5-14.5) 15.4 % (11.5-14.5) Platelet Count 276 x10^3/uL (140-400) 236 x10^3/uL (140-400) Neutrophils (%) (Auto) 88 % (31-73) 78 % (31-73) Lymphocytes (%) (Auto) 4 % (24-48) 11 % (24-48) Monocytes (%) (Auto) 8 % (0-9) 10 % (0-9) Eosinophils (%) (Auto) 0 % (0-3) 1 % (0-3) Basophils (%) (Auto) 0 % (0-3) 0 % (0-3) Neutrophils # (Auto) 17.0 x10^3uL (1.8-7.7) 6.4 x10^3uL (1.8-7.7) Lymphocytes # (Auto) 0.7 x10^3/uL (1.0-4.8) 0.9 x10^3/uL (1.0-4.8) Monocytes # (Auto) 1.5 x10^3/uL (0.0-1.1) 0.8 x10^3/uL (0.0-1.1) Eosinophils # (Auto) 0.0 x10^3/uL (0.0-0.7) 0.1 x10^3/uL (0.0-0.7) Basophils # (Auto) 0.0 x10^3/uL (0.0-0.2) 0.0 x10^3/uL (0.0-0.2) Segmented Neutrophils % 74 % (35-66) Band Neutrophils % 11 % (0-9) Lymphocytes % 8 % (24-48) Monocytes % 6 % (0-10) Metamyelocytes % 1 % (0-0) Platelet Estimate Adequate (ADEQUATE) Prothrombin Time 14.4 SEC (11.7-14.0) Prothromb Time International Ratio 1.2 (0.8-1.1) Sodium Level 137 mmol/L (136-145) 138 mmol/L (136-145) Potassium Level 3.9 mmol/L (3.5-5.1) 3.2 mmol/L (3.5-5.1) Chloride Level 102 mmol/L (98-107) 105 mmol/L (98-107) Carbon Dioxide Level 27 mmol/L (21-32) 26 mmol/L (21-32) Anion Gap 8 (6-14) 7 (6-14) Blood Urea Nitrogen 12 mg/dL (8-26) 7 mg/dL (8-26) Creatinine 1.2 mg/dL (0.7-1.3) 0.9 mg/dL (0.7-1.3) Estimated GFR (Cockcroft-Gault) 58.0 80.8 BUN/Creatinine Ratio 10 (6-20) Glucose Level 102 mg/dL (70-99) 109 mg/dL (70-99) Lactic Acid Level 0.9 mmol/L (0.4-2.0) 0.5 mmol/L (0.4-2.0) Calcium Level 8.6 mg/dL (8.5-10.1) 7.9 mg/dL (8.5-10.1) Total Bilirubin 0.9 mg/dL (0.2-1.0) Aspartate Amino Transf (AST/SGOT) 19 U/L (15-37) Alanine Aminotransferase (ALT/SGPT) 15 U/L (16-63) Alkaline Phosphatase 76 U/L (46-116) Troponin I Quantitative < 0.017 ng/mL (0.000-0.055) BF-Qxl-O-Type Natriuretic Peptide 549 pg/mL (0-449) Total Protein 8.1 g/dL (6.4-8.2) Albumin 3.2 g/dL (3.4-5.0) Albumin/Globulin Ratio 0.7 (1.0-1.7) Lipase 103 U/L (73-393) Procalcitonin 3.86 ng/mL (0.00-0.10) Urine Collection Type Unknown Urine Color Yellow Urine Clarity Clear Urine pH 6.5 Urine Specific [place] 1.010 Urine Protein Negative mg/dL (NEG-TRACE) Urine Glucose (UA) Negative mg/dL (NEG) Urine Ketones (Stick) Negative mg/dL (NEG) Urine Blood Negative (NEG) Urine Nitrite Negative (NEG) Urine Bilirubin Negative (NEG) Urine Urobilinogen Dipstick 0.2 mg/dL (0.2 mg/dL) Urine Leukocyte Esterase Negative (NEG) Urine RBC Occ /HPF (0-2) Urine WBC Occ /HPF (0-4) Urine Squamous Epithelial Cells Occ /LPF Urine Bacteria 0 /HPF (0-FEW) Urine Mucus Slight /LPF Erythrocyte Sedimentation Rate 71 (0-15) Laboratory Tests Test 04/11/18 03:21 04/11/18 03:45 Urine Collection Type Unknown Urine Color Yellow Urine Clarity Clear Urine pH 6.5 Urine Specific [place] 1.010 Urine Protein Negative mg/dL (NEG-TRACE) Urine Glucose (UA) Negative mg/dL (NEG) Urine Ketones (Stick) Negative mg/dL (NEG) Urine Blood Negative (NEG) Urine Nitrite Negative (NEG) Urine Bilirubin Negative (NEG) Urine Urobilinogen Dipstick 0.2 mg/dL (0.2 mg/dL) Urine Leukocyte Esterase Negative (NEG) Urine RBC Occ /HPF (0-2) Urine WBC Occ /HPF (0-4) Urine Squamous Epithelial Cells Occ /LPF Urine Bacteria 0 /HPF (0-FEW) Urine Mucus Slight /LPF White Blood Count 8.2 x10^3/uL (4.0-11.0) Red Blood Count 3.08 x10^6/uL (4.30-5.70) Hemoglobin 7.9 g/dL (13.0-17.5) Hematocrit 24.4 % (39.0-53.0) Mean Corpuscular Volume 79 fL (79-100) Mean Corpuscular Hemoglobin 26 pg (25-35) Mean Corpuscular Hemoglobin Concent 33 g/dL (31-37) Red Cell Distribution Width 15.4 % (11.5-14.5) Platelet Count 236 x10^3/uL (140-400) Neutrophils (%) (Auto) 78 % (31-73) Lymphocytes (%) (Auto) 11 % (24-48) Monocytes (%) (Auto) 10 % (0-9) Eosinophils (%) (Auto) 1 % (0-3) Basophils (%) (Auto) 0 % (0-3) Neutrophils # (Auto) 6.4 x10^3uL (1.8-7.7) Lymphocytes # (Auto) 0.9 x10^3/uL (1.0-4.8) Monocytes # (Auto) 0.8 x10^3/uL (0.0-1.1) Eosinophils # (Auto) 0.1 x10^3/uL (0.0-0.7) Basophils # (Auto) 0.0 x10^3/uL (0.0-0.2) Erythrocyte Sedimentation Rate 71 (0-15) Sodium Level 138 mmol/L (136-145) Potassium Level 3.2 mmol/L (3.5-5.1) Chloride Level 105 mmol/L (98-107) Carbon Dioxide Level 26 mmol/L (21-32) Anion Gap 7 (6-14) Blood Urea Nitrogen 7 mg/dL (8-26) Creatinine 0.9 mg/dL (0.7-1.3) Estimated GFR (Cockcroft-Gault) 80.8 Glucose Level 109 mg/dL (70-99) Lactic Acid Level 0.5 mmol/L (0.4-2.0) Calcium Level 7.9 mg/dL (8.5-10.1) Medications Active Scripts Medications Dose Route/Sig Max Daily Dose Days Date Category Remeron (Mirtazapine) 15 Mg Tab.rapdis 7.5 Mg PO BIDACLD 04/10/18 Reported Benadryl (Diphenhydramine Hcl) 25 Mg Capsule 25 Mg PO Q8HRS 01/28/18 Rx Impression . IMPRESSION: 1. Acute respiratory failure. 2. Pneumonia. 3. Abnormal x-ray. 4. HEADACHE Plan . 6 MIN WALK CONTINUE THE SAME 1. Continue oxygen supplementation. 2. IV antibiotics. 3. The patient presented in the Emergency Room with O2 sats of 80%. We will perform a 6-minute walk prior to discharge. LYSSA PATEL MD Apr 11, 2018 10:10
[2018-04-11] MEDS: MIRTAZAPINE 7.5 MG TABLET. PO SCH ×2 (11:32→20:27)
[2018-04-11] MEDS: LACTOBACILLUS RHAMNOSUS GG 1 CAPSULE. PO SCH ×2 (11:33→20:27)
[2018-04-11 11:41] VITALS: BP 128/80
[2018-04-11] MEDS: AZITHROMYCIN 500 MG in IV NORMAL SALINE 250ML 250 ML IV SCH (13:35)
[2018-04-11 15:42] VITALS: BP 117/77
[2018-04-11] MEDS: cefTRIAXone IV Push 1 GM VIAL. IVP SCH (16:20)
[2018-04-11 19:00] VITALS: BP 142/84
[2018-04-11] MEDS: guaiFENesin DM 200MG/20MG 10 ML SYRUP PO PRN (22:29)
[2018-04-11 23:00] VITALS: BP 150/98
[2018-04-12 03:00] VITALS: BP 142/93
[2018-04-12 07:00] VITALS: BP 174/95
[2018-04-12] MEDS: IPRATRPIUM/ALBUTEROL 0.5/2.5MG 3 ML NEBU. NEB SCH ×4 (07:58→19:11)
[2018-04-12] MEDS ORDERED: METOPROLOL SUCC 24HR ER 25 MG TAB.ER.24H. PO SCH (09:00)
[2018-04-12] MEDS: LACTOBACILLUS RHAMNOSUS GG 1 CAPSULE. PO SCH ×2 (09:48→20:34)
[2018-04-12 10:54] VITALS: BP 169/89
--- NOTE | 2018-04-12 11:18 | PDOC ---
PROGRESS NOTES Chief Complaint Chief Complaint CAP pneumonia Sepsis POA, no organ dysfunction Leukocytosis, tachycardia Accelerated hypertension suboptimal control hypokalemia persistent cough anemia plan fe tibc replete k bp meds adjusted cxr today History of Present Illness History of Present Illness NO Complaints, feels he is getting better WBC 19, hemoglobin 9, platelets okay Tachycardic still high 90s Never smoker Plan: Continue Rocephin iv azithromycin Recheck labs tomorrow PT OT Pro calcitonin is elevated, recheck lactate tomorrow and labs tomorrow If labs are better tomorrow, and feeling better, if bp improved, ambulating- well can discharge tomorrow. d/w with multiple family members at bedside Vitals Vitals Vital Signs Date Time Temp Pulse Resp B/P (MAP) Pulse Ox O2 Delivery O2 Flow Rate FiO2 04/12/18 10:54 99.2 102 20 169/89 (115) 93 Nasal Cannula 1.0 99.2 Physical Exam General: Alert, Oriented X3, Cooperative, mild distress Heart: Regular rate Lungs: Crackles Abdomen: Normal bowel sounds, Soft, Other (thin) Extremities: No clubbing, No cyanosis Skin: No rashes, No breakdown, No significant lesion Labs LABS Portable chest, 04/09/2018: HISTORY: Fever The heart size is normal. There are bilateral apical pleural-parenchymal opacities compatible with scarring. There are scattered streaky parenchymal opacities in both lungs, more so on the left base and right parahilar region. No pleural fluid is evident. IMPRESSION: Mild streaky atelectasis and/or pneumonitis in the left base and right parahilar region. There may be a component of scarring. Electronically signed by: Raman Guevara MD (04/09/2018 1:12 PM) [facility] Laboratory Tests Test 04/12/18 05:08 Hemoglobin 8.0 g/dL (13.0-17.5) Hematocrit 25.0 % (39.0-53.0) Mean Corpuscular Hemoglobin Concent 32 g/dL (31-37) Procalcitonin 1.09 ng/mL (0.00-0.10) Assessment and Plan Assessmemt and Plan Problems Medical Problems: (1) Pneumonia Status: Acute Comment Review of Relevant I have reviewed the following items ananda (where applicable) has been applied. Labs Laboratory Tests Test 04/11/18 03:21 04/11/18 03:45 04/12/18 05:08 Urine Collection Type Unknown Urine Color Yellow Urine Clarity Clear Urine pH 6.5 Urine Specific [place] 1.010 Urine Protein Negative mg/dL (NEG-TRACE) Urine Glucose (UA) Negative mg/dL (NEG) Urine Ketones (Stick) Negative mg/dL (NEG) Urine Blood Negative (NEG) Urine Nitrite Negative (NEG) Urine Bilirubin Negative (NEG) Urine Urobilinogen Dipstick 0.2 mg/dL (0.2 mg/dL) Urine Leukocyte Esterase Negative (NEG) Urine RBC Occ /HPF (0-2) Urine WBC Occ /HPF (0-4) Urine Squamous Epithelial Cells Occ /LPF Urine Bacteria 0 /HPF (0-FEW) Urine Mucus Slight /LPF White Blood Count 8.2 x10^3/uL (4.0-11.0) Red Blood Count 3.08 x10^6/uL (4.30-5.70) Hemoglobin 7.9 g/dL (13.0-17.5) 8.0 g/dL (13.0-17.5) Hematocrit 24.4 % (39.0-53.0) 25.0 % (39.0-53.0) Mean Corpuscular Volume 79 fL (79-100) Mean Corpuscular Hemoglobin 26 pg (25-35) Mean Corpuscular Hemoglobin Concent 33 g/dL (31-37) 32 g/dL (31-37) Red Cell Distribution Width 15.4 % (11.5-14.5) Platelet Count 236 x10^3/uL (140-400) Neutrophils (%) (Auto) 78 % (31-73) Lymphocytes (%) (Auto) 11 % (24-48) Monocytes (%) (Auto) 10 % (0-9) Eosinophils (%) (Auto) 1 % (0-3) Basophils (%) (Auto) 0 % (0-3) Neutrophils # (Auto) 6.4 x10^3uL (1.8-7.7) Lymphocytes # (Auto) 0.9 x10^3/uL (1.0-4.8) Monocytes # (Auto) 0.8 x10^3/uL (0.0-1.1) Eosinophils # (Auto) 0.1 x10^3/uL (0.0-0.7) Basophils # (Auto) 0.0 x10^3/uL (0.0-0.2) Erythrocyte Sedimentation Rate 71 (0-15) Sodium Level 138 mmol/L (136-145) Potassium Level 3.2 mmol/L (3.5-5.1) Chloride Level 105 mmol/L (98-107) Carbon Dioxide Level 26 mmol/L (21-32) Anion Gap 7 (6-14) Blood Urea Nitrogen 7 mg/dL (8-26) Creatinine 0.9 mg/dL (0.7-1.3) Estimated GFR (Cockcroft-Gault) 80.8 Glucose Level 109 mg/dL (70-99) Lactic Acid Level 0.5 mmol/L (0.4-2.0) Calcium Level 7.9 mg/dL (8.5-10.1) Thyroid Stimulating Hormone (TSH) 0.887 uIU/mL (0.358-3.74) Procalcitonin 1.09 ng/mL (0.00-0.10) Laboratory Tests Test 04/12/18 05:08 Hemoglobin 8.0 g/dL (13.0-17.5) Hematocrit 25.0 % (39.0-53.0) Mean Corpuscular Hemoglobin Concent 32 g/dL (31-37) Procalcitonin 1.09 ng/mL (0.00-0.10) Microbiology 04/09/18 Blood Culture - Preliminary, Resulted NO GROWTH AFTER 2 DAYS Medications Current Medications Sodium Chloride 1,000 ml @ 1,000 mls/hr 1X ONCE IV Last administered on at 14:21; Start 04/09/18 at 13:15; Stop 04/09/18 at 14:14; Status DC Acetaminophen (Tylenol) 1,000 mg 1X ONCE PO Last administered on 04/09/18at 14: 27; Start 04/09/18 at 13:15; Stop 04/09/18 at 13:16; Status DC Ceftriaxone Sodium 50 ml @ 100 mls/hr 1X ONCE IV ; Start 04/09/18 at 14:00; Stop 04/09/18 at 14:29; Status DC Azithromycin 250 ml @ 250 mls/hr 1X ONCE IV Last administered on 04/09/18at 14 :35; Start 04/09/18 at 14:30; Stop 04/09/18 at 15:29; Status DC Ceftriaxone Sodium 50 ml @ 100 mls/hr 1X ONCE IV Last administered on at 14:47; Start 04/09/18 at 14:45; Stop 04/09/18 at 15:14; Status DC Acetaminophen (Tylenol) 650 mg PRN Q6HRS PRN PO MILD PAIN / TEMP Last administered on 04/10/18at 08:42; Start 04/09/18 at 17:00 Ceftriaxone Sodium 1 gm/ Dextrose 50 ml @ 100 mls/hr Q24H IV ; Start 04/09/18 at 19:45; Status UNV Albuterol/ Ipratropium (Duoneb) 3 ml RTQID NEB Last administered on 04/12/18at 07 :58; Start 04/09/18 at 20:00 Ceftriaxone Sodium (Rocephin) 1 gm Q24H IVP ; Start 04/09/18 at 20:00; Stop at 20:00; Status DC Ceftriaxone Sodium (Rocephin) 1 gm Q24H IVP Last administered on 04/11/18at 16:20 ; Start 04/10/18 at 15:00 Guaifenesin (Robitussin Dm) 10 ml PRN Q6HRS PRN PO COUGH Last administered on at 22:29; Start 04/10/18 at 08:45 Acetaminophen/ Hydrocodone Bitart (Lortab 5/325) 1 tab PRN Q4HRS PRN PO PAIN Last administered on 04/12/18at 00:32; Start 04/10/18 at 08:45 Morphine Sulfate (Morphine Sulfate) 1 mg PRN Q2HR PRN IV PAIN; Start 04/10/18 at 08:45 Diphenhydramine HCl (Benadryl) 25 mg Q8HRS PO ; Start 04/10/18 at 14:00; Stop 04/10/18 at 14:00; Status DC Non-Formulary Medication (Mirtazapine (Remeron)) 30 mg BIDAC PO ; Start 04/10/18 at 16:30; Status UNV Diphenhydramine HCl (Benadryl) 25 mg Q8HRS PRN PO itvh; Start 04/10/18 at 14:00 Mirtazapine (Remeron) 7.5 mg BIDACLD PO Last administered on 04/11/18at 20:27; Start 04/10/18 at 11:30 Azithromycin 500 mg/Sodium Chloride 250 ml @ 250 mls/hr Q24H IV Last administered on 04/11/18at 13:35; Start 04/10/18 at 14:00 Lactobacillus Rhamnosus (Culturelle) 1 cap BID PO Last administered on at 09:48; Start 04/10/18 at 21:00 Ibuprofen (Motrin) 600 mg PRN Q6HRS PRN PO INFLAMMATION; Start 04/10/18 at 21:00 Potassium Chloride (Klor-Con) 40 meq 1X ONCE PO Last administered on 04/11/18at 11:33; Start 04/11/18 at 09:30; Stop 04/11/18 at 09:31; Status DC Metoprolol Succinate (Toprol Xl) 25 mg 1X ONCE PO Last administered on at 11:34; Start 04/11/18 at 10:00; Stop 04/11/18 at 10:01; Status DC Metoprolol Succinate (Toprol Xl) 25 mg DAILY PO Last administered on 04/12/18at 09:49; Start 04/12/18 at 09:00 Ibuprofen (Motrin) 600 mg 1X ONCE PO Last administered on 04/11/18at 11:33; Start 04/11/18 at 10:00; Stop 04/11/18 at 10:01; Status DC Sodium Chloride 1,000 ml @ 100 mls/hr 1X ONCE IV Last administered on at 11:34; Start 04/11/18 at 10:00; Stop 04/11/18 at 19:59; Status DC Active Scripts Active Tessalon Perle (Benzonatate) 100 Mg Capsule 1 Cap PO TID Proair Hfa Inhaler (Albuterol Sulfate) 8.5 Gm Hfa.aer.ad 1 Puff INH PRN Q6HRS PRN 30 Days Levaquin (Levofloxacin) 500 Mg Tablet 1 Tab PO DAILY Benadryl (Diphenhydramine Hcl) 25 Mg Capsule 25 Mg PO Q8HRS Reported Remeron (Mirtazapine) 15 Mg Tab.rapdis 7.5 Mg PO BIDACLD Vitals/I & O Vital Sign - Last 24 Hours 04/11/18 04/11/18 04/11/18 04/11/18 11:24 11:34 11:41 15:37 Temp 97.9 97.9 Pulse 101 98 Resp 20 B/P (MAP) 130/76 128/80 (96) Pulse Ox 98 98 O2 Delivery Nasal Cannula Nasal Cannula Room Air O2 Flow Rate 1.0 04/11/18 04/11/18 04/11/18 04/11/18 15:42 19:00 19:39 20:00 Temp 97.4 98.2 97.4 98.2 Pulse 105 110 Resp 21 20 B/P (MAP) 117/77 (90) 142/84 (103) Pulse Ox 94 92 O2 Delivery Nasal Cannula Room Air Room Air Room Air 04/11/18 04/12/18 04/12/18 04/12/18 23:00 00:32 01:56 03:00 Temp 98.6 97.4 98.6 97.4 Pulse 108 103 Resp 20 18 20 B/P (MAP) 150/98 (115) 142/93 (109) Pulse Ox 94 94 94 95 O2 Delivery Room Air Room Air Room Air Room Air 04/12/18 04/12/18 04/12/18 04/12/18 07:00 08:00 09:49 10:54 Temp 99.9 99.2 99.9 99.2 Pulse 105 105 102 Resp 20 20 B/P (MAP) 174/95 (121) 174/95 169/89 (115) Pulse Ox 92 94 93 O2 Delivery Nasal Cannula Room Air Nasal Cannula O2 Flow Rate 1.0 1.0 Intake and Output 04/11/18 04/11/18 04/12/18 15:00 23:00 07:00 Intake Total 640 ml 240 ml 150 ml Balance 640 ml 240 ml 150 ml NIKO PLAZA MD Apr 12, 2018 11:18
[2018-04-12] MEDS ORDERED: POTASSIUM CHLORIDE 20 MEQ TABLET.ER. PO ONE (11:30)
[2018-04-12] MEDS: METOPROLOL SUCC 24HR ER 50 MG TAB.ER.24H. PO SCH (12:23)
[2018-04-12] MEDS: MIRTAZAPINE 7.5 MG TABLET. PO SCH ×2 (12:23→16:20)
[2018-04-12] MEDS: ACETAMINOPHEN 325 MG TABLET. PO PRN (12:23)
[2018-04-12 15:00] VITALS: BP 165/84
--- NOTE | 2018-04-12 15:27 | RAD ---
CHEST PA LATERAL Clinical indications: COUGH PNEUMONIA COMPARISON: April 09, 2018. Findings: No pneumothorax is seen. Again seen are infiltrates within the lateral aspect of the right upper lobe and the apex of the right upper lobe which are stable.. Again seen is linear infiltrate within the apex of the left upper lobe. This could be due to scarring or atelectasis. Again seen is an infiltrate present within the left lung base which has improved. Small bilateral pleural effusions are now evident. Bilateral bronchitis is evident. Heart size is mildly enlarged. The mediastinum and pulmonary vasculature and both marc are stable. The osseous structures are intact. IMPRESSION: Stable right upper lobe lung infiltrates. Improvement of left lung base infiltrate. New finding of small bilateral pleural effusions. Electronically signed by: Kiran Ledezma MD (04/12/2018 3:24 PM) [facility]
[2018-04-12] MEDS ORDERED: BISACODYL 5 MG TABLET.DR. PO ONE (16:00)
--- NOTE | 2018-04-12 16:04 | PDOC2 ---
CONSULT Date of Consult Date of Consult DATE: 04/12/18 TIME: 15:56 Reason for Consult Reason for Consult: iron def anemia, dyspepsia History of Present Illness Reason for Visit: 83 yo male admitted with SOA and pneumonia several days ago- improving on antibiotics and pulmonary care ( now with resting O2 of 93 %) who has 1-2 months history of upper abd ache and dyspepsia without vomiting or weight loss. NO bleeding, melena, etc and Bowel movements are normal. No prior EGD or colonoscopy (history via interpretation from grandson). No regular use of NSAIDs. Past Medical History Cardiovascular: HTN Pulmonary: Pneumonia GI: GERD Current Problem List Problem List Problems Medical Problems: (1) Pneumonia Status: Acute Current Medications Current Medications Current Medications Sodium Chloride 1,000 ml @ 1,000 mls/hr 1X ONCE IV Last administered on at 14:21; Start 04/09/18 at 13:15; Stop 04/09/18 at 14:14; Status DC Acetaminophen (Tylenol) 1,000 mg 1X ONCE PO Last administered on 04/09/18at 14: 27; Start 04/09/18 at 13:15; Stop 04/09/18 at 13:16; Status DC Ceftriaxone Sodium 50 ml @ 100 mls/hr 1X ONCE IV ; Start 04/09/18 at 14:00; Stop 04/09/18 at 14:29; Status DC Azithromycin 250 ml @ 250 mls/hr 1X ONCE IV Last administered on 04/09/18at 14 :35; Start 04/09/18 at 14:30; Stop 04/09/18 at 15:29; Status DC Ceftriaxone Sodium 50 ml @ 100 mls/hr 1X ONCE IV Last administered on at 14:47; Start 04/09/18 at 14:45; Stop 04/09/18 at 15:14; Status DC Acetaminophen (Tylenol) 650 mg PRN Q6HRS PRN PO MILD PAIN / TEMP Last administered on 04/12/18at 12:23; Start 04/09/18 at 17:00 Ceftriaxone Sodium 1 gm/ Dextrose 50 ml @ 100 mls/hr Q24H IV ; Start 04/09/18 at 19:45; Status UNV Albuterol/ Ipratropium (Duoneb) 3 ml RTQID NEB Last administered on 04/12/18at 12 :28; Start 04/09/18 at 20:00 Ceftriaxone Sodium (Rocephin) 1 gm Q24H IVP ; Start 04/09/18 at 20:00; Stop at 20:00; Status DC Ceftriaxone Sodium (Rocephin) 1 gm Q24H IVP Last administered on 04/11/18at 16:20 ; Start 04/10/18 at 15:00 Guaifenesin (Robitussin Dm) 10 ml PRN Q6HRS PRN PO COUGH Last administered on at 22:29; Start 04/10/18 at 08:45 Acetaminophen/ Hydrocodone Bitart (Lortab 5/325) 1 tab PRN Q4HRS PRN PO PAIN Last administered on 04/12/18at 00:32; Start 04/10/18 at 08:45 Morphine Sulfate (Morphine Sulfate) 1 mg PRN Q2HR PRN IV PAIN; Start 04/10/18 at 08:45 Diphenhydramine HCl (Benadryl) 25 mg Q8HRS PO ; Start 04/10/18 at 14:00; Stop 04/10/18 at 14:00; Status DC Non-Formulary Medication (Mirtazapine (Remeron)) 30 mg BIDAC PO ; Start 04/10/18 at 16:30; Status UNV Diphenhydramine HCl (Benadryl) 25 mg Q8HRS PRN PO itvh; Start 04/10/18 at 14:00 Mirtazapine (Remeron) 7.5 mg BIDACLD PO Last administered on 04/12/18at 12:23; Start 04/10/18 at 11:30 Azithromycin 500 mg/Sodium Chloride 250 ml @ 250 mls/hr Q24H IV Last administered on 04/11/18at 13:35; Start 04/10/18 at 14:00 Lactobacillus Rhamnosus (Culturelle) 1 cap BID PO Last administered on at 09:48; Start 04/10/18 at 21:00 Ibuprofen (Motrin) 600 mg PRN Q6HRS PRN PO INFLAMMATION; Start 04/10/18 at 21:00 ; Stop 04/12/18 at 14:31; Status DC Potassium Chloride (Klor-Con) 40 meq 1X ONCE PO Last administered on 04/11/18at 11:33; Start 04/11/18 at 09:30; Stop 04/11/18 at 09:31; Status DC Metoprolol Succinate (Toprol Xl) 25 mg 1X ONCE PO Last administered on at 11:34; Start 04/11/18 at 10:00; Stop 04/11/18 at 10:01; Status DC Metoprolol Succinate (Toprol Xl) 25 mg DAILY PO Last administered on 04/12/18at 09:49; Start 04/12/18 at 09:00; Stop 04/12/18 at 11:23; Status DC Ibuprofen (Motrin) 600 mg 1X ONCE PO Last administered on 04/11/18at 11:33; Start 04/11/18 at 10:00; Stop 04/11/18 at 10:01; Status DC Sodium Chloride 1,000 ml @ 100 mls/hr 1X ONCE IV Last administered on at 11:34; Start 04/11/18 at 10:00; Stop 04/11/18 at 19:59; Status DC Metoprolol Succinate (Toprol Xl) 50 mg DAILY PO Last administered on 04/12/18at 12:23; Start 04/12/18 at 11:30; Stop 04/14/18 at 21:00 Amlodipine Besylate (Norvasc) 5 mg DAILY PO ; Start 04/12/18 at 13:00; Stop at 21:00 Potassium Chloride (Klor-Con) 20 meq 1X ONCE PO ; Start 04/13/18 at 08:00; Stop 04/13/18 at 08:01 Potassium Chloride (Klor-Con) 40 meq 1X ONCE PO Last administered on 04/12/18at 12:24; Start 04/12/18 at 11:30; Stop 04/12/18 at 11:31; Status DC Pantoprazole Sodium (PROTONIX VIAL for IV PUSH) 40 mg DAILYAC IVP ; Start at 07:30 Active Scripts Active Tessalon Perle (Benzonatate) 100 Mg Capsule 1 Cap PO TID Proair Hfa Inhaler (Albuterol Sulfate) 8.5 Gm Hfa.aer.ad 1 Puff INH PRN Q6HRS PRN 30 Days Levaquin (Levofloxacin) 500 Mg Tablet 1 Tab PO DAILY Benadryl (Diphenhydramine Hcl) 25 Mg Capsule 25 Mg PO Q8HRS Reported Remeron (Mirtazapine) 15 Mg Tab.rapdis 7.5 Mg PO BIDACLD Allergies Allergies: Coded Allergies: No Known Drug Allergies (Unverified , 01/28/18) Physical Exam General: Alert, Oriented X3 HEENT: Atraumatic, PERRLA Lungs: Other (few rhonchi- other heard clear) Heart: Regular rate, Normal S1, Normal S2 Abdomen: Normal bowel sounds, Soft, No tenderness, No hepatosplenomegaly, No masses Extremities: No clubbing, No cyanosis Skin: No rashes Psych/Mental Status: Mental status NL Vitals VITALS Vital Signs Date Time Temp Pulse Resp B/P (MAP) Pulse Ox O2 Delivery O2 Flow Rate FiO2 04/12/18 15:00 98.9 102 20 165/84 (111) 93 Nasal Cannula 1.0 98.9 Labs Labs Laboratory Tests Test 04/11/18 03:21 04/11/18 03:45 04/12/18 05:08 Urine Collection Type Unknown Urine Color Yellow Urine Clarity Clear Urine pH 6.5 Urine Specific [place] 1.010 Urine Protein Negative mg/dL (NEG-TRACE) Urine Glucose (UA) Negative mg/dL (NEG) Urine Ketones (Stick) Negative mg/dL (NEG) Urine Blood Negative (NEG) Urine Nitrite Negative (NEG) Urine Bilirubin Negative (NEG) Urine Urobilinogen Dipstick 0.2 mg/dL (0.2 mg/dL) Urine Leukocyte Esterase Negative (NEG) Urine RBC Occ /HPF (0-2) Urine WBC Occ /HPF (0-4) Urine Squamous Epithelial Cells Occ /LPF Urine Bacteria 0 /HPF (0-FEW) Urine Mucus Slight /LPF White Blood Count 8.2 x10^3/uL (4.0-11.0) Red Blood Count 3.08 x10^6/uL (4.30-5.70) Hemoglobin 7.9 g/dL (13.0-17.5) 8.0 g/dL (13.0-17.5) Hematocrit 24.4 % (39.0-53.0) 25.0 % (39.0-53.0) Mean Corpuscular Volume 79 fL (79-100) Mean Corpuscular Hemoglobin 26 pg (25-35) Mean Corpuscular Hemoglobin Concent 33 g/dL (31-37) 32 g/dL (31-37) Red Cell Distribution Width 15.4 % (11.5-14.5) Platelet Count 236 x10^3/uL (140-400) Neutrophils (%) (Auto) 78 % (31-73) Lymphocytes (%) (Auto) 11 % (24-48) Monocytes (%) (Auto) 10 % (0-9) Eosinophils (%) (Auto) 1 % (0-3) Basophils (%) (Auto) 0 % (0-3) Neutrophils # (Auto) 6.4 x10^3uL (1.8-7.7) Lymphocytes # (Auto) 0.9 x10^3/uL (1.0-4.8) Monocytes # (Auto) 0.8 x10^3/uL (0.0-1.1) Eosinophils # (Auto) 0.1 x10^3/uL (0.0-0.7) Basophils # (Auto) 0.0 x10^3/uL (0.0-0.2) Erythrocyte Sedimentation Rate 71 (0-15) Sodium Level 138 mmol/L (136-145) Potassium Level 3.2 mmol/L (3.5-5.1) Chloride Level 105 mmol/L (98-107) Carbon Dioxide Level 26 mmol/L (21-32) Anion Gap 7 (6-14) Blood Urea Nitrogen 7 mg/dL (8-26) Creatinine 0.9 mg/dL (0.7-1.3) Estimated GFR (Cockcroft-Gault) 80.8 Glucose Level 109 mg/dL (70-99) Lactic Acid Level 0.5 mmol/L (0.4-2.0) Calcium Level 7.9 mg/dL (8.5-10.1) Thyroid Stimulating Hormone (TSH) 0.887 uIU/mL (0.358-3.74) Reticulocyte Count (auto) 0.5 % (0.5-2.5) Iron Level 15 ug/dL (65-175) Total Iron Binding Capacity 276 ug/dL (250-450) Iron Saturation 5 % (15-34) Procalcitonin 1.09 ng/mL (0.00-0.10) Laboratory Tests Test 04/12/18 05:08 Hemoglobin 8.0 g/dL (13.0-17.5) Hematocrit 25.0 % (39.0-53.0) Mean Corpuscular Hemoglobin Concent 32 g/dL (31-37) Reticulocyte Count (auto) 0.5 % (0.5-2.5) Iron Level 15 ug/dL (65-175) Total Iron Binding Capacity 276 ug/dL (250-450) Iron Saturation 5 % (15-34) Procalcitonin 1.09 ng/mL (0.00-0.10) Assessment/Plan Assessment/Plan Iron def anemia- no overt bleeding but has dyspepsia, decreased appetite ? gastritis, H pylori, PUD, occult polyps or CA- no prior EGD or colonoscopy Dyspepsia and decreased appetite with some upper abd discomfort for 1-2 months Plan- check stool for blood based on history and no prior testing, recommend EGD and colonoscopy- since pneumonia clinically improved, will plan scopes for tomorrow afternoon as tolerated. IV iron MARYAN HUDSON MD Apr 12, 2018 16:03
[2018-04-12] MEDS: AZITHROMYCIN 500 MG in IV NORMAL SALINE 250ML 250 ML IV SCH (16:19)
[2018-04-12] MEDS: cefTRIAXone IV Push 1 GM VIAL. IVP SCH (16:19)
[2018-04-12] MEDS: amLODIPine BESYLATE 5 MG TABLET PO SCH (16:20)
[2018-04-12] MEDS ORDERED: IRON SUCROSE COMPLEX 200 MG in IV NORMAL SALINE 100ML 100 ML IV ONE (17:00)
[2018-04-12] MEDS ORDERED: POLYETHYLENE GLYCOL 3350 238 GM POWDER PO ONE (17:00)
[2018-04-12 19:03] VITALS: BP 113/76
[2018-04-12 22:39] VITALS: BP 130/78
[2018-04-12 22:44] LABS: FECAL OB PT NEGATIVE (NEG)
[2018-04-13 02:30] VITALS: BP 123/88
[2018-04-13 05:42] LABS: BASO % 0 % (0-3); EOS # 0.1 x10^3/uL (0.0-0.7); EOS % 1 % (0-3); HEMATOCRIT 26.5 % (39.0-53.0); HEMOGLOBIN 8.7 g/dL (13.0-17.5); LYMPH # 0.8 x10^3/uL (1.0-4.8); LYMPH % 11 % (24-48); MEAN CORPUSCULAR HEMOGLOBIN 26 pg (25-35); MEAN CORPUSCULAR HGB CONC 33 g/dL (31-37); MEAN CORPUSCULAR VOLUME 80 fL (79-100); MONO # 0.6 x10^3/uL (0.0-1.1); MONO % 9 % (0-9); NEUT # 5.4 x10^3uL (1.8-7.7); NEUT % 78 % (31-73); PLATELET COUNT 281 x10^3/uL (140-400); RED BLOOD COUNT 3.33 x10^6/uL (4.30-5.70); RED CELL DISTRIBUTION WIDTH 15.6 % (11.5-14.5); WHITE BLOOD COUNT 6.9 x10^3/uL (4.0-11.0)
[2018-04-13 06:10] LABS: CALCIUM 8.7 mg/dL (8.5-10.1); CREATININE 0.9 mg/dL (0.7-1.3); GFR 80.8; POTASSIUM 3.6 mmol/L (3.5-5.1)
[2018-04-13 07:00] VITALS: BP 131/83
[2018-04-13] MEDS ORDERED: PANTOPRAZOLE IV PUSH 40 MG VIAL. IVP SCH (07:30)
[2018-04-13] MEDS: IPRATRPIUM/ALBUTEROL 0.5/2.5MG 3 ML NEBU. NEB SCH ×3 (07:59→15:14)
[2018-04-13] MEDS ORDERED: POTASSIUM CHLORIDE 20 MEQ TABLET.ER. PO ONE (08:00)
[2018-04-13] MEDS: amLODIPine BESYLATE 5 MG TABLET PO SCH (08:46)
[2018-04-13] MEDS: METOPROLOL SUCC 24HR ER 50 MG TAB.ER.24H. PO SCH (08:46)
[2018-04-13] MEDS: LACTOBACILLUS RHAMNOSUS GG 1 CAPSULE. PO SCH (08:46)
[2018-04-13] MEDS: ACETAMINOPHEN 325 MG TABLET. PO PRN (08:46)
--- NOTE | 2018-04-13 10:14 | PDOC ---
PULMONARY PROGRESS NOTES Subjective feels better no soa Vitals Vital Signs Date Time Temp Pulse Resp B/P (MAP) Pulse Ox O2 Delivery O2 Flow Rate FiO2 04/13/18 08:46 100 131/83 04/13/18 07:59 95 Room Air 04/13/18 07:00 98.8 20 98.8 04/12/18 15:00 1.0 ROS: No Nausea, No Chest Pain, No Abdominal Pain, No Increase Cough General: Alert, No acute distress Lungs: Clear Cardiovascular: S1, S2 Abdomen: Soft Neuro Exam: Alert Extremities: No Edema Skin: Warm Labs Laboratory Tests Test 04/12/18 05:08 04/12/18 21:45 04/13/18 04:10 Hemoglobin 8.0 g/dL (13.0-17.5) 8.7 g/dL (13.0-17.5) Hematocrit 25.0 % (39.0-53.0) 26.5 % (39.0-53.0) Mean Corpuscular Hemoglobin Concent 32 g/dL (31-37) 33 g/dL (31-37) Reticulocyte Count (auto) 0.5 % (0.5-2.5) Iron Level 15 ug/dL (65-175) Total Iron Binding Capacity 276 ug/dL (250-450) Iron Saturation 5 % (15-34) Procalcitonin 1.09 ng/mL (0.00-0.10) Stool Occult Blood Negative (NEG) White Blood Count 6.9 x10^3/uL (4.0-11.0) Red Blood Count 3.33 x10^6/uL (4.30-5.70) Mean Corpuscular Volume 80 fL (79-100) Mean Corpuscular Hemoglobin 26 pg (25-35) Red Cell Distribution Width 15.6 % (11.5-14.5) Platelet Count 281 x10^3/uL (140-400) Neutrophils (%) (Auto) 78 % (31-73) Lymphocytes (%) (Auto) 11 % (24-48) Monocytes (%) (Auto) 9 % (0-9) Eosinophils (%) (Auto) 1 % (0-3) Basophils (%) (Auto) 0 % (0-3) Neutrophils # (Auto) 5.4 x10^3uL (1.8-7.7) Lymphocytes # (Auto) 0.8 x10^3/uL (1.0-4.8) Monocytes # (Auto) 0.6 x10^3/uL (0.0-1.1) Eosinophils # (Auto) 0.1 x10^3/uL (0.0-0.7) Basophils # (Auto) 0.0 x10^3/uL (0.0-0.2) Sodium Level 136 mmol/L (136-145) Potassium Level 3.6 mmol/L (3.5-5.1) Chloride Level 103 mmol/L (98-107) Carbon Dioxide Level 24 mmol/L (21-32) Anion Gap 9 (6-14) Blood Urea Nitrogen 7 mg/dL (8-26) Creatinine 0.9 mg/dL (0.7-1.3) Estimated GFR (Cockcroft-Gault) 80.8 Glucose Level 105 mg/dL (70-99) Calcium Level 8.7 mg/dL (8.5-10.1) Laboratory Tests Test 04/12/18 21:45 04/13/18 04:10 Stool Occult Blood Negative (NEG) White Blood Count 6.9 x10^3/uL (4.0-11.0) Red Blood Count 3.33 x10^6/uL (4.30-5.70) Hemoglobin 8.7 g/dL (13.0-17.5) Hematocrit 26.5 % (39.0-53.0) Mean Corpuscular Volume 80 fL (79-100) Mean Corpuscular Hemoglobin 26 pg (25-35) Mean Corpuscular Hemoglobin Concent 33 g/dL (31-37) Red Cell Distribution Width 15.6 % (11.5-14.5) Platelet Count 281 x10^3/uL (140-400) Neutrophils (%) (Auto) 78 % (31-73) Lymphocytes (%) (Auto) 11 % (24-48) Monocytes (%) (Auto) 9 % (0-9) Eosinophils (%) (Auto) 1 % (0-3) Basophils (%) (Auto) 0 % (0-3) Neutrophils # (Auto) 5.4 x10^3uL (1.8-7.7) Lymphocytes # (Auto) 0.8 x10^3/uL (1.0-4.8) Monocytes # (Auto) 0.6 x10^3/uL (0.0-1.1) Eosinophils # (Auto) 0.1 x10^3/uL (0.0-0.7) Basophils # (Auto) 0.0 x10^3/uL (0.0-0.2) Sodium Level 136 mmol/L (136-145) Potassium Level 3.6 mmol/L (3.5-5.1) Chloride Level 103 mmol/L (98-107) Carbon Dioxide Level 24 mmol/L (21-32) Anion Gap 9 (6-14) Blood Urea Nitrogen 7 mg/dL (8-26) Creatinine 0.9 mg/dL (0.7-1.3) Estimated GFR (Cockcroft-Gault) 80.8 Glucose Level 105 mg/dL (70-99) Calcium Level 8.7 mg/dL (8.5-10.1) Medications Active Scripts Medications Dose Route/Sig Max Daily Dose Days Date Category Remeron (Mirtazapine) 15 Mg Tab.rapdis 7.5 Mg PO BIDACLD 04/10/18 Reported Benadryl (Diphenhydramine Hcl) 25 Mg Capsule 25 Mg PO Q8HRS 01/28/18 Rx Impression . 1. Acute respiratory failure.resolved 2. Pneumonia. 3. Abnormal x-ray. Plan . 1. wean off oxygen 2. IV antibiotics.can change to Po 3. CXR 04/12 improving LLL infiltrate and stable RUL infiltrate 4. EGD today and if ok, can go home KOLE ALCAZAR MD Apr 13, 2018 10:14
[2018-04-13 11:00] VITALS: BP 111/68
--- NOTE | 2018-04-13 11:32 | PDOC ---
PROGRESS NOTES Chief Complaint Chief Complaint CAP pneumonia Sepsis POA, no organ dysfunction Leukocytosis, tachycardia Accelerated hypertension suboptimal control hypokalemia persistent cough anemia plan egd and colonoscopy today if ok home later today oral levaquin x 10 days 500mg fe tibc replete k bp meds adjusted cxr improved GI following for anemia History of Present Illness History of Present Illness NO Complaints, feels he is getting better WBC 19, hemoglobin 9, platelets okay Tachycardic still high 90s Never smoker Plan: Continue Rocephin iv azithromycin Recheck labs tomorrow PT OT Pro calcitonin is elevated, recheck lactate tomorrow and labs tomorrow If labs are better tomorrow, and feeling better, if bp improved, ambulating- well can discharge tomorrow. d/w with multiple family members at bedside Vitals Vitals Vital Signs Date Time Temp Pulse Resp B/P (MAP) Pulse Ox O2 Delivery O2 Flow Rate FiO2 04/13/18 08:46 100 131/83 04/13/18 07:59 95 Room Air 04/13/18 07:00 98.8 20 98.8 04/12/18 15:00 1.0 Physical Exam General: Alert, Oriented X3 Heart: Regular rate, Normal S1, Normal S2 Lungs: Clear Abdomen: Normal bowel sounds, Soft, No tenderness, No hepatosplenomegaly, No masses Extremities: No clubbing, No cyanosis Skin: No rashes Labs LABS Laboratory Tests Test 04/12/18 21:45 04/13/18 04:10 Stool Occult Blood Negative (NEG) White Blood Count 6.9 x10^3/uL (4.0-11.0) Red Blood Count 3.33 x10^6/uL (4.30-5.70) Hemoglobin 8.7 g/dL (13.0-17.5) Hematocrit 26.5 % (39.0-53.0) Mean Corpuscular Volume 80 fL (79-100) Mean Corpuscular Hemoglobin 26 pg (25-35) Mean Corpuscular Hemoglobin Concent 33 g/dL (31-37) Red Cell Distribution Width 15.6 % (11.5-14.5) Platelet Count 281 x10^3/uL (140-400) Neutrophils (%) (Auto) 78 % (31-73) Lymphocytes (%) (Auto) 11 % (24-48) Monocytes (%) (Auto) 9 % (0-9) Eosinophils (%) (Auto) 1 % (0-3) Basophils (%) (Auto) 0 % (0-3) Neutrophils # (Auto) 5.4 x10^3uL (1.8-7.7) Lymphocytes # (Auto) 0.8 x10^3/uL (1.0-4.8) Monocytes # (Auto) 0.6 x10^3/uL (0.0-1.1) Eosinophils # (Auto) 0.1 x10^3/uL (0.0-0.7) Basophils # (Auto) 0.0 x10^3/uL (0.0-0.2) Sodium Level 136 mmol/L (136-145) Potassium Level 3.6 mmol/L (3.5-5.1) Chloride Level 103 mmol/L (98-107) Carbon Dioxide Level 24 mmol/L (21-32) Anion Gap 9 (6-14) Blood Urea Nitrogen 7 mg/dL (8-26) Creatinine 0.9 mg/dL (0.7-1.3) Estimated GFR (Cockcroft-Gault) 80.8 Glucose Level 105 mg/dL (70-99) Calcium Level 8.7 mg/dL (8.5-10.1) Assessment and Plan Assessmemt and Plan Problems Medical Problems: (1) Pneumonia Status: Acute Comment Review of Relevant I have reviewed the following items ananda (where applicable) has been applied. Labs Laboratory Tests Test 04/12/18 05:08 04/12/18 21:45 04/13/18 04:10 Hemoglobin 8.0 g/dL (13.0-17.5) 8.7 g/dL (13.0-17.5) Hematocrit 25.0 % (39.0-53.0) 26.5 % (39.0-53.0) Mean Corpuscular Hemoglobin Concent 32 g/dL (31-37) 33 g/dL (31-37) Reticulocyte Count (auto) 0.5 % (0.5-2.5) Iron Level 15 ug/dL (65-175) Total Iron Binding Capacity 276 ug/dL (250-450) Iron Saturation 5 % (15-34) Procalcitonin 1.09 ng/mL (0.00-0.10) Stool Occult Blood Negative (NEG) White Blood Count 6.9 x10^3/uL (4.0-11.0) Red Blood Count 3.33 x10^6/uL (4.30-5.70) Mean Corpuscular Volume 80 fL (79-100) Mean Corpuscular Hemoglobin 26 pg (25-35) Red Cell Distribution Width 15.6 % (11.5-14.5) Platelet Count 281 x10^3/uL (140-400) Neutrophils (%) (Auto) 78 % (31-73) Lymphocytes (%) (Auto) 11 % (24-48) Monocytes (%) (Auto) 9 % (0-9) Eosinophils (%) (Auto) 1 % (0-3) Basophils (%) (Auto) 0 % (0-3) Neutrophils # (Auto) 5.4 x10^3uL (1.8-7.7) Lymphocytes # (Auto) 0.8 x10^3/uL (1.0-4.8) Monocytes # (Auto) 0.6 x10^3/uL (0.0-1.1) Eosinophils # (Auto) 0.1 x10^3/uL (0.0-0.7) Basophils # (Auto) 0.0 x10^3/uL (0.0-0.2) Sodium Level 136 mmol/L (136-145) Potassium Level 3.6 mmol/L (3.5-5.1) Chloride Level 103 mmol/L (98-107) Carbon Dioxide Level 24 mmol/L (21-32) Anion Gap 9 (6-14) Blood Urea Nitrogen 7 mg/dL (8-26) Creatinine 0.9 mg/dL (0.7-1.3) Estimated GFR (Cockcroft-Gault) 80.8 Glucose Level 105 mg/dL (70-99) Calcium Level 8.7 mg/dL (8.5-10.1) Laboratory Tests Test 04/12/18 21:45 04/13/18 04:10 Stool Occult Blood Negative (NEG) White Blood Count 6.9 x10^3/uL (4.0-11.0) Red Blood Count 3.33 x10^6/uL (4.30-5.70) Hemoglobin 8.7 g/dL (13.0-17.5) Hematocrit 26.5 % (39.0-53.0) Mean Corpuscular Volume 80 fL (79-100) Mean Corpuscular Hemoglobin 26 pg (25-35) Mean Corpuscular Hemoglobin Concent 33 g/dL (31-37) Red Cell Distribution Width 15.6 % (11.5-14.5) Platelet Count 281 x10^3/uL (140-400) Neutrophils (%) (Auto) 78 % (31-73) Lymphocytes (%) (Auto) 11 % (24-48) Monocytes (%) (Auto) 9 % (0-9) Eosinophils (%) (Auto) 1 % (0-3) Basophils (%) (Auto) 0 % (0-3) Neutrophils # (Auto) 5.4 x10^3uL (1.8-7.7) Lymphocytes # (Auto) 0.8 x10^3/uL (1.0-4.8) Monocytes # (Auto) 0.6 x10^3/uL (0.0-1.1) Eosinophils # (Auto) 0.1 x10^3/uL (0.0-0.7) Basophils # (Auto) 0.0 x10^3/uL (0.0-0.2) Sodium Level 136 mmol/L (136-145) Potassium Level 3.6 mmol/L (3.5-5.1) Chloride Level 103 mmol/L (98-107) Carbon Dioxide Level 24 mmol/L (21-32) Anion Gap 9 (6-14) Blood Urea Nitrogen 7 mg/dL (8-26) Creatinine 0.9 mg/dL (0.7-1.3) Estimated GFR (Cockcroft-Gault) 80.8 Glucose Level 105 mg/dL (70-99) Calcium Level 8.7 mg/dL (8.5-10.1) Microbiology 04/09/18 Blood Culture - Preliminary, Resulted NO GROWTH AFTER 3 DAYS Medications Current Medications Sodium Chloride 1,000 ml @ 1,000 mls/hr 1X ONCE IV Last administered on at 14:21; Start 04/09/18 at 13:15; Stop 04/09/18 at 14:14; Status DC Acetaminophen (Tylenol) 1,000 mg 1X ONCE PO Last administered on 04/09/18at 14: 27; Start 04/09/18 at 13:15; Stop 04/09/18 at 13:16; Status DC Ceftriaxone Sodium 50 ml @ 100 mls/hr 1X ONCE IV ; Start 04/09/18 at 14:00; Stop 04/09/18 at 14:29; Status DC Azithromycin 250 ml @ 250 mls/hr 1X ONCE IV Last administered on 04/09/18at 14 :35; Start 04/09/18 at 14:30; Stop 04/09/18 at 15:29; Status DC Ceftriaxone Sodium 50 ml @ 100 mls/hr 1X ONCE IV Last administered on at 14:47; Start 04/09/18 at 14:45; Stop 04/09/18 at 15:14; Status DC Acetaminophen (Tylenol) 650 mg PRN Q6HRS PRN PO MILD PAIN / TEMP Last administered on 04/13/18at 08:46; Start 04/09/18 at 17:00 Ceftriaxone Sodium 1 gm/ Dextrose 50 ml @ 100 mls/hr Q24H IV ; Start 04/09/18 at 19:45; Status UNV Albuterol/ Ipratropium (Duoneb) 3 ml RTQID NEB Last administered on 04/13/18at 07 :59; Start 04/09/18 at 20:00 Ceftriaxone Sodium (Rocephin) 1 gm Q24H IVP ; Start 04/09/18 at 20:00; Stop at 20:00; Status DC Ceftriaxone Sodium (Rocephin) 1 gm Q24H IVP Last administered on 04/12/18at 16:19 ; Start 04/10/18 at 15:00 Guaifenesin (Robitussin Dm) 10 ml PRN Q6HRS PRN PO COUGH Last administered on at 22:29; Start 04/10/18 at 08:45 Acetaminophen/ Hydrocodone Bitart (Lortab 5/325) 1 tab PRN Q4HRS PRN PO PAIN Last administered on 04/12/18at 00:32; Start 04/10/18 at 08:45 Morphine Sulfate (Morphine Sulfate) 1 mg PRN Q2HR PRN IV PAIN; Start 04/10/18 at 08:45 Diphenhydramine HCl (Benadryl) 25 mg Q8HRS PO ; Start 04/10/18 at 14:00; Stop 04/10/18 at 14:00; Status DC Non-Formulary Medication (Mirtazapine (Remeron)) 30 mg BIDAC PO ; Start 04/10/18 at 16:30; Status UNV Diphenhydramine HCl (Benadryl) 25 mg Q8HRS PRN PO itvh; Start 04/10/18 at 14:00 Mirtazapine (Remeron) 7.5 mg BIDACLD PO Last administered on 04/12/18at 16:20; Start 04/10/18 at 11:30 Azithromycin 500 mg/Sodium Chloride 250 ml @ 250 mls/hr Q24H IV Last administered on 04/12/18at 16:19; Start 04/10/18 at 14:00 Lactobacillus Rhamnosus (Culturelle) 1 cap BID PO Last administered on at 08:46; Start 04/10/18 at 21:00 Ibuprofen (Motrin) 600 mg PRN Q6HRS PRN PO INFLAMMATION; Start 04/10/18 at 21:00 ; Stop 04/12/18 at 14:31; Status DC Potassium Chloride (Klor-Con) 40 meq 1X ONCE PO Last administered on 04/11/18at 11:33; Start 04/11/18 at 09:30; Stop 04/11/18 at 09:31; Status DC Metoprolol Succinate (Toprol Xl) 25 mg 1X ONCE PO Last administered on at 11:34; Start 04/11/18 at 10:00; Stop 04/11/18 at 10:01; Status DC Metoprolol Succinate (Toprol Xl) 25 mg DAILY PO Last administered on 04/12/18at 09:49; Start 04/12/18 at 09:00; Stop 04/12/18 at 11:23; Status DC Ibuprofen (Motrin) 600 mg 1X ONCE PO Last administered on 04/11/18at 11:33; Start 04/11/18 at 10:00; Stop 04/11/18 at 10:01; Status DC Sodium Chloride 1,000 ml @ 100 mls/hr 1X ONCE IV Last administered on at 11:34; Start 04/11/18 at 10:00; Stop 04/11/18 at 19:59; Status DC Metoprolol Succinate (Toprol Xl) 50 mg DAILY PO Last administered on 04/13/18at 08:46; Start 04/12/18 at 11:30; Stop 04/14/18 at 21:00 Amlodipine Besylate (Norvasc) 5 mg DAILY PO Last administered on 04/13/18at 08:46 ; Start 04/12/18 at 13:00; Stop 04/17/18 at 21:00 Potassium Chloride (Klor-Con) 20 meq 1X ONCE PO Last administered on 04/13/18at 08:46; Start 04/13/18 at 08:00; Stop 04/13/18 at 08:01; Status DC Potassium Chloride (Klor-Con) 40 meq 1X ONCE PO Last administered on 04/12/18at 12:24; Start 04/12/18 at 11:30; Stop 04/12/18 at 11:31; Status DC Pantoprazole Sodium (PROTONIX VIAL for IV PUSH) 40 mg DAILYAC IVP Last administered on 04/13/18at 08:47; Start 04/13/18 at 07:30 Polyethylene Glycol (miraLAX Powder BULK BOTTLE) 238 gm 1X ONCE PO Last administered on 04/12/18 19:25; Start 04/12/18 at 17:00; Stop 04/12/18 at 17:01; Status DC Bisacodyl (Dulcolax Tab) 10 mg 1X ONCE PO Last administered on 04/12/18 16:19 ; Start 04/12/18 at 16:00; Stop 04/12/18 at 16:01; Status DC Iron Sucrose 200 mg/Sodium Chloride 110 ml @ 55 mls/hr 1X ONCE IV Last administered on 04/12/18 19:25; Start 04/12/18 at 17:00; Stop 04/12/18 at 18:59; Status DC Active Scripts Active Tessalon Perle (Benzonatate) 100 Mg Capsule 1 Cap PO TID Proair Hfa Inhaler (Albuterol Sulfate) 8.5 Gm Hfa.aer.ad 1 Puff INH PRN Q6HRS PRN 30 Days Levaquin (Levofloxacin) 500 Mg Tablet 1 Tab PO DAILY Benadryl (Diphenhydramine Hcl) 25 Mg Capsule 25 Mg PO Q8HRS Reported Remeron (Mirtazapine) 15 Mg Tab.rapdis 7.5 Mg PO BIDACLD Vitals/I & O Vital Sign - Last 24 Hours 04/12/18 04/12/18 04/12/18 04/12/18 12:23 12:29 15:00 15:51 Temp 98.9 98.9 Pulse 102 102 Resp 20 B/P (MAP) 169/89 165/84 (111) Pulse Ox 94 93 93 O2 Delivery Room Air Nasal Cannula Room Air O2 Flow Rate 1.0 04/12/18 04/12/18 04/12/18 04/12/18 16:20 19:03 19:12 20:00 Temp 99.3 99.3 Pulse 102 101 Resp 16 B/P (MAP) 165/84 113/76 (88) Pulse Ox 95 O2 Delivery Room Air Room Air Room Air 04/12/18 04/13/18 04/13/18 04/13/18 22:39 02:30 07:00 07:45 Temp 97.5 98.8 98.8 97.5 98.8 98.8 Pulse 94 105 100 Resp 16 15 20 B/P (MAP) 130/78 (95) 123/88 (100) 131/83 (99) Pulse Ox 93 94 95 O2 Delivery Room Air Room Air Room Air Room Air 04/13/18 04/13/18 04/13/18 07:59 08:46 08:46 Pulse 100 100 B/P (MAP) 131/83 131/83 Pulse Ox 95 O2 Delivery Room Air Intake and Output 04/12/18 04/12/18 04/13/18 15:00 23:00 07:00 Intake Total 600 ml 1080 ml 600 ml Output Total 400 ml Balance 600 ml 680 ml 600 ml NIKO PLAZA MD Apr 13, 2018 11:32
[2018-04-13] MEDS: MIRTAZAPINE 7.5 MG TABLET. PO SCH ×2 (12:23→16:42)
[2018-04-13] MEDS ORDERED: IV RINGERS,LACTATED 1000ML 1,000 ML IV SCH (14:08)
[2018-04-13] MEDS ORDERED: MIDAZOLAM HCL/PF 2 MG/2 ML VIAL. IV PRN (14:15)
[2018-04-13] MEDS ORDERED: fentaNYL PF VIAL 100 MCG/2 ML VIAL IV PRN ×2 (14:15)
[2018-04-13] MEDS ORDERED: LIDOCAINE 1% PF 2 ML VIAL. ID PRN (14:15)
[2018-04-13] MEDS ORDERED: PROPOFOL 20 ML IV ONE (14:43)
--- NOTE | 2018-04-13 15:08 | PDOC4 ---
PROCEDURE Procedure EGD dyspepsia and iron def anemia anesthesia with propofol Findings- normal esophagus, 4 cm hiatal hernia, normal fundus and body, gastritis in antrum (bx), mild duodentitis (bx) Plan- PPI check biopsies MARYAN HUDSON MD Apr 13, 2018 15:08
--- NOTE | 2018-04-13 15:23 | PDOC4 ---
PROCEDURE Procedure Colonoscopy iron def anemia anesthesia with propofol Findings- enlarged and firm prostate, normal colonoscopy- no polyps or ulcers Plan- PSA check stool for blood treat with iron and monitor MARYAN HUDSON MD Apr 13, 2018 15:23
[2018-04-13 15:48] VITALS: BP 111/68
[2018-04-13 15:54] VITALS: BP 144/92
[2018-04-13] MEDS: cefTRIAXone IV Push 1 GM VIAL. IVP SCH (16:41)
[2018-04-13] MEDS: AZITHROMYCIN 500 MG in IV NORMAL SALINE 250ML 250 ML IV SCH (16:42)
--- NOTE | 2018-04-13 17:05 | PDOC3 ---
Discharge Summary Date of Admission: Apr 09, 2018 Date of Discharge: Apr 13, 2018 Follow-Up: 3-5 days Admitting Diagnosis comment: discharge diagnosis Chief Complaint CAP pneumonia Sepsis POA, no organ dysfunction Leukocytosis, tachycardia Accelerated hypertension suboptimal control hypokalemia persistent cough anemia prob fe def gastritis plan feso4 see PCP 1-2 WEEKS SEE GI IN 4 WEEKS PSA egd and colonoscopy today ok home later today oral levaquin x 10 days 500mg fe tibc replete k bp meds adjusted cxr improved GI following for anemia History of Present Illness History of Present Illness NO Complaints, feels he is getting better WBC 19, hemoglobin 9, platelets okay Tachycardic still high 90s Never smoker Plan: Continue Rocephin iv azithromycin Recheck labs tomorrow PT OT Pro calcitonin is elevated, recheck lactate tomorrow and labs tomorrow If labs are better tomorrow, and feeling better, if bp improved, ambulating- well can discharge tomorrow. d/w with multiple family members at bedside Vitals PROCEDURE Procedure EGD dyspepsia and iron def anemia anesthesia with propofol Findings- normal esophagus, 4 cm hiatal hernia, normal fundus and body, gastritis in antrum (bx), mild duodentitis (bx) Plan- PPI check biopsies MARYAN HUDSON MD PROCEDURE Procedure Colonoscopy iron def anemia anesthesia with propofol Findings- enlarged and firm prostate, normal colonoscopy- no polyps or ulcers Plan- PSA check stool for blood treat with iron and monitor FINAL DIAGNOSIS Problems Medical Problems: (1) Pneumonia Status: Acute Brief Hospital Course Mr. David is a 83 old [sex] who presented with [ pneumonia] CONDITION AT DISCHARGE: Improved Discharge Medications Current Medications Sodium Chloride 1,000 ml @ 1,000 mls/hr 1X ONCE IV Last administered on at 14:21; Start 04/09/18 at 13:15; Stop 04/09/18 at 14:14; Status DC Acetaminophen (Tylenol) 1,000 mg 1X ONCE PO Last administered on 04/09/18at 14: 27; Start 04/09/18 at 13:15; Stop 04/09/18 at 13:16; Status DC Ceftriaxone Sodium 50 ml @ 100 mls/hr 1X ONCE IV ; Start 04/09/18 at 14:00; Stop 04/09/18 at 14:29; Status DC Azithromycin 250 ml @ 250 mls/hr 1X ONCE IV Last administered on 04/09/18at 14 :35; Start 04/09/18 at 14:30; Stop 04/09/18 at 15:29; Status DC Ceftriaxone Sodium 50 ml @ 100 mls/hr 1X ONCE IV Last administered on at 14:47; Start 04/09/18 at 14:45; Stop 04/09/18 at 15:14; Status DC Acetaminophen (Tylenol) 650 mg PRN Q6HRS PRN PO MILD PAIN / TEMP Last administered on 04/13/18at 08:46; Start 04/09/18 at 17:00 Ceftriaxone Sodium 1 gm/ Dextrose 50 ml @ 100 mls/hr Q24H IV ; Start 04/09/18 at 19:45; Status UNV Albuterol/ Ipratropium (Duoneb) 3 ml RTQID NEB Last administered on 04/13/18at 11 :48; Start 04/09/18 at 20:00 Ceftriaxone Sodium (Rocephin) 1 gm Q24H IVP ; Start 04/09/18 at 20:00; Stop at 20:00; Status DC Ceftriaxone Sodium (Rocephin) 1 gm Q24H IVP Last administered on 04/13/18at 16:41 ; Start 04/10/18 at 15:00 Guaifenesin (Robitussin Dm) 10 ml PRN Q6HRS PRN PO COUGH Last administered on at 22:29; Start 04/10/18 at 08:45 Acetaminophen/ Hydrocodone Bitart (Lortab 5/325) 1 tab PRN Q4HRS PRN PO PAIN MODERATE Last administered on 04/12/18at 00:32; Start 04/10/18 at 08:45 Morphine Sulfate (Morphine Sulfate) 1 mg PRN Q2HR PRN IV PAIN; Start 04/10/18 at 08:45 Diphenhydramine HCl (Benadryl) 25 mg Q8HRS PO ; Start 04/10/18 at 14:00; Stop 04/10/18 at 14:00; Status DC Non-Formulary Medication (Mirtazapine (Remeron)) 30 mg BIDAC PO ; Start 04/10/18 at 16:30; Status UNV Diphenhydramine HCl (Benadryl) 25 mg Q8HRS PRN PO itch; Start 04/10/18 at 14:00 Mirtazapine (Remeron) 7.5 mg BIDACLD PO Last administered on 04/13/18at 16:42; Start 04/10/18 at 11:30 Azithromycin 500 mg/Sodium Chloride 250 ml @ 250 mls/hr Q24H IV Last administered on 04/13/18at 16:42; Start 04/10/18 at 14:00 Lactobacillus Rhamnosus (Culturelle) 1 cap BID PO Last administered on at 08:46; Start 04/10/18 at 21:00 Ibuprofen (Motrin) 600 mg PRN Q6HRS PRN PO INFLAMMATION; Start 04/10/18 at 21:00 ; Stop 04/12/18 at 14:31; Status DC Potassium Chloride (Klor-Con) 40 meq 1X ONCE PO Last administered on 04/11/18at 11:33; Start 04/11/18 at 09:30; Stop 04/11/18 at 09:31; Status DC Metoprolol Succinate (Toprol Xl) 25 mg 1X ONCE PO Last administered on at 11:34; Start 04/11/18 at 10:00; Stop 04/11/18 at 10:01; Status DC Metoprolol Succinate (Toprol Xl) 25 mg DAILY PO Last administered on 04/12/18at 09:49; Start 04/12/18 at 09:00; Stop 04/12/18 at 11:23; Status DC Ibuprofen (Motrin) 600 mg 1X ONCE PO Last administered on 04/11/18at 11:33; Start 04/11/18 at 10:00; Stop 04/11/18 at 10:01; Status DC Sodium Chloride 1,000 ml @ 100 mls/hr 1X ONCE IV Last administered on at 11:34; Start 04/11/18 at 10:00; Stop 04/11/18 at 19:59; Status DC Metoprolol Succinate (Toprol Xl) 50 mg DAILY PO Last administered on 04/13/18at 08:46; Start 04/12/18 at 11:30; Stop 04/14/18 at 21:00 Amlodipine Besylate (Norvasc) 5 mg DAILY PO Last administered on 04/13/18at 08:46 ; Start 04/12/18 at 13:00; Stop 04/17/18 at 21:00 Potassium Chloride (Klor-Con) 20 meq 1X ONCE PO Last administered on 04/13/18at 08:46; Start 04/13/18 at 08:00; Stop 04/13/18 at 08:01; Status DC Potassium Chloride (Klor-Con) 40 meq 1X ONCE PO Last administered on 04/12/18at 12:24; Start 04/12/18 at 11:30; Stop 04/12/18 at 11:31; Status DC Pantoprazole Sodium (PROTONIX VIAL for IV PUSH) 40 mg DAILYAC IVP Last administered on 04/13/18at 08:47; Start 04/13/18 at 07:30; Stop 04/13/18 at 15:25; Status DC Polyethylene Glycol (miraLAX Powder BULK BOTTLE) 238 gm 1X ONCE PO Last administered on 04/12/18at 19:25; Start 04/12/18 at 17:00; Stop 04/12/18 at 17:01; Status DC Bisacodyl (Dulcolax Tab) 10 mg 1X ONCE PO Last administered on 04/12/18at 16:19 ; Start 04/12/18 at 16:00; Stop 04/12/18 at 16:01; Status DC Iron Sucrose 200 mg/Sodium Chloride 110 ml @ 55 mls/hr 1X ONCE IV Last administered on 04/12/18at 19:25; Start 04/12/18 at 17:00; Stop 04/12/18 at 18:59; Status DC Midazolam HCl (Versed) 2 mg PRN 1X PRN IV PRIOR TO PROCEDURE; Start 04/13/18 at 14:15; Stop 04/14/18 at 14:14 Fentanyl Citrate (Fentanyl 2ml Vial) 25 mcg PRN Q5MIN PRN IV X 2 DOSES FOR PAIN ; Start 04/13/18 at 14:15; Stop 04/14/18 at 14:14 Fentanyl Citrate (Fentanyl 2ml Vial) 50 mcg PRN Q5MIN PRN IV X 2 DOSES FOR PAIN ; Start 04/13/18 at 14:15; Stop 04/14/18 at 14:14 Ringer's Solution 1,000 ml @ 125 mls/hr Q8H IV Last administered on 04/13/18at 14:51; Start 04/13/18 at 14:08; Stop 04/14/18 at 02:07 Lidocaine HCl (Xylocaine-Mpf 1% 2ml Vial) 2 ml 1X PRN PRN ID IV START; Start at 14:15; Stop 04/14/18 at 14:14 Pantoprazole Sodium (Protonix) 40 mg DAILYAC PO ; Start 04/14/18 at 07:30 Active Scripts Active Tessalon Perle (Benzonatate) 100 Mg Capsule 1 Cap PO TID Proair Hfa Inhaler (Albuterol Sulfate) 8.5 Gm Hfa.aer.ad 1 Puff INH PRN Q6HRS PRN 30 Days Levaquin (Levofloxacin) 500 Mg Tablet 1 Tab PO DAILY Benadryl (Diphenhydramine Hcl) 25 Mg Capsule 25 Mg PO Q8HRS Reported Remeron (Mirtazapine) 15 Mg Tab.rapdis 7.5 Mg PO BIDACLD Vital Signs Vital Signs Date Time Temp Pulse Resp B/P (MAP) Pulse Ox O2 Delivery O2 Flow Rate FiO2 04/13/18 15:54 90 20 144/92 96 Room Air 04/13/18 15:48 97.2 97.2 04/13/18 14:57 1.0 Labs Laboratory Tests Test 04/12/18 05:08 04/12/18 21:45 04/13/18 04:10 Hemoglobin 8.0 g/dL (13.0-17.5) 8.7 g/dL (13.0-17.5) Hematocrit 25.0 % (39.0-53.0) 26.5 % (39.0-53.0) Mean Corpuscular Hemoglobin Concent 32 g/dL (31-37) 33 g/dL (31-37) Reticulocyte Count (auto) 0.5 % (0.5-2.5) Iron Level 15 ug/dL (65-175) Total Iron Binding Capacity 276 ug/dL (250-450) Iron Saturation 5 % (15-34) Procalcitonin 1.09 ng/mL (0.00-0.10) Stool Occult Blood Negative (NEG) White Blood Count 6.9 x10^3/uL (4.0-11.0) Red Blood Count 3.33 x10^6/uL (4.30-5.70) Mean Corpuscular Volume 80 fL (79-100) Mean Corpuscular Hemoglobin 26 pg (25-35) Red Cell Distribution Width 15.6 % (11.5-14.5) Platelet Count 281 x10^3/uL (140-400) Neutrophils (%) (Auto) 78 % (31-73) Lymphocytes (%) (Auto) 11 % (24-48) Monocytes (%) (Auto) 9 % (0-9) Eosinophils (%) (Auto) 1 % (0-3) Basophils (%) (Auto) 0 % (0-3) Neutrophils # (Auto) 5.4 x10^3uL (1.8-7.7) Lymphocytes # (Auto) 0.8 x10^3/uL (1.0-4.8) Monocytes # (Auto) 0.6 x10^3/uL (0.0-1.1) Eosinophils # (Auto) 0.1 x10^3/uL (0.0-0.7) Basophils # (Auto) 0.0 x10^3/uL (0.0-0.2) Sodium Level 136 mmol/L (136-145) Potassium Level 3.6 mmol/L (3.5-5.1) Chloride Level 103 mmol/L (98-107) Carbon Dioxide Level 24 mmol/L (21-32) Anion Gap 9 (6-14) Blood Urea Nitrogen 7 mg/dL (8-26) Creatinine 0.9 mg/dL (0.7-1.3) Estimated GFR (Cockcroft-Gault) 80.8 Glucose Level 105 mg/dL (70-99) Calcium Level 8.7 mg/dL (8.5-10.1) Laboratory Tests Test 04/12/18 21:45 04/13/18 04:10 Stool Occult Blood Negative (NEG) White Blood Count 6.9 x10^3/uL (4.0-11.0) Red Blood Count 3.33 x10^6/uL (4.30-5.70) Hemoglobin 8.7 g/dL (13.0-17.5) Hematocrit 26.5 % (39.0-53.0) Mean Corpuscular Volume 80 fL (79-100) Mean Corpuscular Hemoglobin 26 pg (25-35) Mean Corpuscular Hemoglobin Concent 33 g/dL (31-37) Red Cell Distribution Width 15.6 % (11.5-14.5) Platelet Count 281 x10^3/uL (140-400) Neutrophils (%) (Auto) 78 % (31-73) Lymphocytes (%) (Auto) 11 % (24-48) Monocytes (%) (Auto) 9 % (0-9) Eosinophils (%) (Auto) 1 % (0-3) Basophils (%) (Auto) 0 % (0-3) Neutrophils # (Auto) 5.4 x10^3uL (1.8-7.7) Lymphocytes # (Auto) 0.8 x10^3/uL (1.0-4.8) Monocytes # (Auto) 0.6 x10^3/uL (0.0-1.1) Eosinophils # (Auto) 0.1 x10^3/uL (0.0-0.7) Basophils # (Auto) 0.0 x10^3/uL (0.0-0.2) Sodium Level 136 mmol/L (136-145) Potassium Level 3.6 mmol/L (3.5-5.1) Chloride Level 103 mmol/L (98-107) Carbon Dioxide Level 24 mmol/L (21-32) Anion Gap 9 (6-14) Blood Urea Nitrogen 7 mg/dL (8-26) Creatinine 0.9 mg/dL (0.7-1.3) Estimated GFR (Cockcroft-Gault) 80.8 Glucose Level 105 mg/dL (70-99) Calcium Level 8.7 mg/dL (8.5-10.1) Allergies Allergies Coded Allergies Type Severity Reaction Last Updated Verified No Known Drug Allergies 01/28/18 No Disposition/Orders: D/C to Home Patient Instructions D/C PLANNING 40 MIN NIKO PLAZA MD Apr 13, 2018 17:05
--- NOTE | 2018-04-13 17:11 | DISCH ---
DISCHARGE INSTRUCTIONS Condition on Discharge Condition on Discharge: Stable Activity After Discharge Activity Instructions for Disc: Resume previous activity Lifting Instructions after Dis: No heavy lifting, No pulling or pushing Exercise Instruction after Dis: Walk 10 min, 3 x per day Driving Instructions after Dis: Do not drive today Diet after Discharge Diet after Discharge: Cardiac Checks after Discharge Checks after discharge: Check blood press - daily Contacting the DR. after DC Call your doctor for: If your condition worsens NIKO PLAZA MD Apr 13, 2018 17:11
[2018-04-13] MEDS ORDERED: METO-239 PO (17:22)
[2018-04-13] MEDS ORDERED: PANT40GR PO (17:23)
[2018-04-14] MEDS ORDERED: PANTOPRAZOLE 40 MG TABLET.DR. PO SCH (07:30)
--- NOTE | 2018-04-15 15:07 | PATHOLOGY ---
[facility] Accession Number: [id number] . 01 Material submitted: . PART A: SMALL BOWEL BIOPSY PART B: GASTRIC ANTRUM . 01 Clinical history: . JODI . 02 Diagnosis: A. 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 . B. Gastric biopsies, antrum: - Chronic gastritis, mild to moderate, with few Helicobacter organisms identified. (JPM:ashley; 04/15/2018) QMS/04/15/2018 . 02 Comment: Sections of the small bowel biopsies reveal segments of duodenum and small intestine mucosa showing focal mild chronic inflammation and gastric foveolar metaplasia. There are no sprue-like changes. . Sections of the gastric biopsies reveal segments of gastric antral and gastric body mucosa showing congestion and mild to moderate chronic inflammation. A properly controlled immunoperoxidase stain for Helicobacter focally reveals a few Helicobacter organisms. There is no evidence of malignancy. (JPM:ashley; 04/15/2018) . . Special stain performed: Immunoperoxidase stain for Helicobacter on B1. . 02 Electronically signed: . Clarence Moy MD, Pathologist NPI- [id number] . 01 Gross description: . A. Received in formalin labeled "Issac David, small bowel BX, rule out celiac sprue," are 4 segments of sellers soft tissue measuring 1.2 x 0.7 x 0.2 cm in aggregate dimensions and ranging from 0.2 to 0.5 cm in maximum dimension. The specimen is submitted entirely in cassette A1. . B. Received in formalin labeled "Pokwal, Bhuban, gastric antrum, rule out H. pylori," are 2 segments of sellers soft tissue measuring 1.2 x 0.2 x 0.2 cm in aggregate dimensions and ranging from 0.5 to 0.6 cm in maximum dimension. The specimen is submitted entirely in cassette B1. (TSD; 04/14/2018) TOB/TOB . 02 Pathologist provided ICD-10: K29.50, B96.81, K52.9 . 02 CPT . 192699, 534841 Performed at: 01 [facility] [address] [place] [address] [id number] MD Joni Quiroga MD Phone: [phone] Performed at: 02 [facility] [address] [place] [address] [id number] MD Clarence Moy MD Phone: [phone]
== END 2018-04-13 18:43 | disposition home or self-care (01) | DRG 871 ==
LOC: ER 12:20 → 5 SOUTH 15:20
PROVIDERS: ADMIT Internal Medicine; ATTEND Internal Medicine
PROC: 0DB98ZX Excision of Duodenum, Via Natural or Artificial Opening Endoscopic, Diagnostic (ICD-10-PCS; principal; 2018-04-13 15:30)
PROC: 0DB68ZX Excision of Stomach, Via Natural or Artificial Opening Endoscopic, Diagnostic (ICD-10-PCS; 2018-04-13 15:30)
PROC: 0DJD8ZZ Inspection of Lower Intestinal Tract, Via Natural or Artificial Opening Endoscopic (ICD-10-PCS; 2018-04-13 15:30)
DX: A41.9 Sepsis, unspecified organism (principal); J18.9 Pneumonia, unspecified organism; J96.01 Acute respiratory failure with hypoxia; J98.11 Atelectasis; D50.9 Iron deficiency anemia, unspecified; E87.6 Hypokalemia; I10 Essential (primary) hypertension; K21.9 Gastro-esophageal reflux disease without esophagitis; K29.70 Gastritis, unspecified, without bleeding; K44.9 Diaphragmatic hernia without obstruction or gangrene; F32.9 Major depressive disorder, single episode, unspecified; K29.80 Duodenitis without bleeding; Z79.899 Other long term (current) drug therapy; Z82.49 Family history of ischemic heart disease and other diseases of the circulatory system
CPT/HCPCS: 36415; 45378; 71045; 71046; 80048; 80053; 81001; 82274; 82378; 83540; 83550; 83605; 83690; 83880; 84145; 84443; 84484; 85007; 85014; 85018; 85025; 85045; 85610; 85651; 87040; 93005; 94640; 94760; 96365; 96366; 96368; C9113; G0103; J0456; J0690; J0696; J1756; J2704; J7030; J7050; J7120; J7620; 99285-25

== ENCOUNTER 2019-12-05 18:53 | Emergency (ER) | payer MEDICAID ==
[~2019-12-05] VITALS: Ht 167.6 cm; Wt 63.0 kg
[~2019-12-05 18:53] MED LIST changes: +ACET500T68 PO; +ALBU2.5V8 INH; +ASPI-630 PO; +ASPI1TAB62 PO; +BENZ100C PO; +CALC200T23 PO; +CEFD300C PO; +DOXY100C2 PO; +IPRA3AMP29 NEB; +LACT1CAP19 PO; +LEVO500T59 PO; +METO-239 PO; +MIRT15TA2 PO; +MIRT30TA PO; +PANT40GR PO; +POLY17PO28 PO
[2019-12-05] MEDS ORDERED: IV NORMAL SALINE 1000ML BAG 1,000 ML IV SCH (19:16)
--- NOTE | 2019-12-05 19:21 | PHYS DOC ---
Past Medical History Past Medical History: GERD Additional Past Medical Histor: POOR APPETITE Past Surgical History: No Surgical History Smoking Status: Never Smoker Alcohol Use: Rarely Drug Use: None General Adult EDM: Chief Complaint: HEADACHE HPI: HPI: Patient is a 84 year old male who presents with report of fever. Patient also reportedly is having cough and some headache. Patient has had no vomiting or diarrhea.[] Review of Systems: Review of Systems: Constitutional: Positive fever and chills. [] Respiratory: Positive cough without shortness of breath. [] Cardiovascular: Denies chest pain or edema. [] GI: Denies abdominal pain, nausea, vomiting or diarrhea. [] Integument: Denies rash. [] Neurologic: Complains of headache without focal weakness or sensory changes. [] A full 10 point review of systems has been reviewed and is otherwise negative. Heart Score: Risk Factors: Risk Factors: DM, Current or recent (<one month) smoker, HTN, HLP, family history of CAD, obesity. Risk Scores: Score 0 - 3: 2.5% MACE over next 6 weeks - Discharge Home Score 4 - 6: 20.3% MACE over next 6 weeks - Admit for Clinical Observation Score 7 - 10: 72.7% MACE over next 6 weeks - Early Invasive Strategies Current Medications: Current Medications Medications (Trade) Dose Ordered Sig/Jeremias Start Time Stop Time Status Last Admin Dose Admin Sodium Chloride 1,000 ml @ 1,000 mls/hr Q1H 12/05/19 19:16 12/05/19 20:15 UNV Allergies: Allergies: Allergies Coded Allergies Type Severity Reaction Last Updated Verified No Known Drug Allergies 01/28/18 No Physical Exam: PE: Constitutional: Well developed, well nourished, no acute distress, non-toxic appearance. [] HENT: Normocephalic, atraumatic, bilateral external ears normal, oropharynx moist, no oral exudates, nose normal. [] Eyes: PERRLA, EOMI, conjunctiva normal, no discharge. [] Neck: Normal range of motion, no tenderness, supple. [] Cardiovascular: Fernando rate and rhythm[] Lungs & Thorax: Bilateral breath sounds clear to auscultation [] Abdomen: Bowel sounds normal, soft, no tenderness. [] Skin: Warm, dry, no erythema, no rash. [] Extremities: No tenderness, no cyanosis, no clubbing, ROM intact, no edema. [] Neurologic: Alert and oriented X 3, no focal deficits noted. [] EKG: EKG: [] Radiology/Procedures: Radiology/Procedures: [] Impression: PROCEDURE: PORTABLE CHEST 1V AP portable chest radiograph 12/05/2019 Clinical History: Cough. An AP erect portable digital radiograph of the chest was obtained. No previous studies are available for comparison. The cardiac silhouette is borderline enlarged. The thoracic aorta is mildly tortuous. No acute pulmonary infiltrate is seen. No pleural effusion or pneumothorax is noted. Degenerative changes are seen involving the thoracic spine and both shoulders. IMPRESSION: No acute abnormality is seen. Electronically signed by: Niles Ross MD (12/05/2019 8:16 PM) [id number] DICTATED and SIGNED BY: NILES ROSS MD DATE: 12/05/192015 Course & Med Decision Making: Course & Med Decision Making Pertinent Labs and Imaging studies reviewed. (See chart for details) [] Dragon Disclaimer: Dragon Disclaimer: This electronic medical record was generated, in whole or in part, using a voice recognition dictation system. Departure Departure Impression: Primary Impression: Influenza A Disposition: HOME, SELF-CARE Condition: STABLE Referrals: WILMAR GAITAN MD (PCP) Patient Instructions: Influenza, Adult Scripts Oseltamivir Phosphate (TAMIFLU) 75 Mg Capsule 1 CAP PO BID, #10 CAP Prov: JADA BIANCHI Jr. DO 12/05/19 JADA BIANCHI Jr. DO Dec 05, 2019 19:21
[2019-12-05 19:30] LABS: BASO % 1 % (0-3); EOS % 1 % (0-3); HEMATOCRIT 27.5 % (39.0-53.0); HEMOGLOBIN 8.8 g/dL (13.0-17.5); LYMPH # 0.6 x10^3/uL (1.0-4.8); LYMPH % 18 % (24-48); MEAN CORPUSCULAR HEMOGLOBIN 24 pg (25-35); MEAN CORPUSCULAR HGB CONC 32 g/dL (31-37); MEAN CORPUSCULAR VOLUME 75 fL (79-100); MONO # 0.8 x10^3/uL (0.0-1.1); MONO % 27 % (0-9); NEUT # 1.6 x10^3/uL (1.8-7.7); NEUT % 52 % (31-73); PLATELET COUNT 221 x10^3/uL (140-400); RED BLOOD COUNT 3.65 x10^6/uL (4.30-5.70); RED CELL DISTRIBUTION WIDTH 17.4 % (11.5-14.5); WHITE BLOOD COUNT 3.1 x10^3/uL (4.0-11.0)
[2019-12-05 19:38] LABS: CALCIUM 8.3 mg/dL (8.5-10.1); CREATININE 1.1 mg/dL (0.7-1.3); GFR 63.9; POTASSIUM 3.7 mmol/L (3.5-5.1)
[2019-12-05 19:44] LABS: ALBUMIN 3.5 g/dL (3.4-5.0); ALBUMIN/GLOBULIN RATIO 0.9 (1.0-1.7); TOTAL BILIRUBIN 0.3 mg/dL (0.2-1.0); TOTAL PROTEIN 7.4 g/dL (6.4-8.2)
[2019-12-05 19:54] LABS: % BANDS 2 % (0-9); % EOS 1 % (0-5); % LYMPHS 16 % (24-48); % MONOS 23 % (0-10); % SEGS 58 % (35-66); ANISOCYTOSIS SLIGHT; HYPOCHROMIA SLIGHT; PLT ESTIMATE ADEQUATE (ADEQUATE)
--- NOTE | 2019-12-05 20:22 | RAD ---
AP portable chest radiograph 12/05/2019 Clinical History: Cough and fever. An AP erect portable digital radiograph of the chest was obtained. Comparison study is dated 08/28/2019. The cardiac silhouette is mildly enlarged. The thoracic aorta is tortuous. Atherosclerotic calcification of the thoracic aorta is seen. Areas of scarring are seen involving both upper lobes, unchanged. No acute pulmonary infiltrate is noted. No pneumothorax or pleural effusion is seen. The osseous structures are unchanged. Impression: No acute abnormality is seen. Electronically signed by: Niles Ross MD (12/05/2019 8:19 PM) [id number]
[2019-12-05 20:42] LABS: INFLUENZA A PATIENT NEGATIVE (NEGATIVE); INFLUENZA B PATIENT NEGATIVE (NEGATIVE)
[2019-12-05 20:56] LABS: BILIRUBIN,URINE NEGATIVE (NEG); CLARITY,URINE CLEAR; COLOR,URINE YELLOW; NITRITE,URINE NEGATIVE (NEG); PH,URINE 5.5 (<5.0-8.0); PROTEIN,URINE NEGATIVE (NEG-TRACE); UROBILINOGEN,URINE 0.2 mg/dL (0.2 mg/dL)
[2019-12-05 21:02] LABS: HYALINE CASTS, URINE FEW /HPF
[2019-12-05 21:03] LABS: BACTERIA,URINE 0 /HPF (0-FEW); RBC,URINE 0 /HPF (0-2); WBC,URINE 0 /HPF (0-4)
[2019-12-05] MEDS ORDERED: OSELTAMIVIR 75 MG CAPSULE PO ONE (21:30)
[2019-12-05 22:08] VITALS: BP 137/73
[2019-12-05] MEDS ORDERED: OSEL75CA PO (22:08)
== END 2019-12-05 22:28 | disposition home or self-care (01) ==
LOC: ER 18:53
DX: J10.1 Influenza due to other identified influenza virus with other respiratory manifestations (principal); K21.9 Gastro-esophageal reflux disease without esophagitis
CPT/HCPCS: 36415; 71045; 80053; 81001; 83605; 85007; 85025; 87040; 87070; 87635; 87804; 87880; 99285; J7030

== ENCOUNTER 2022-01-03 21:24 | Emergency (ER) | payer MEDICAID ==
[~2022-01-03] VITALS: Ht 167.6 cm; Wt 62.2 kg
[~2022-01-03 21:24] MED LIST changes: -DOXY100C2 PO; +DOXY100C3 PO; +MIRT-34 PO; -MIRT30TA PO; +OSEL75CA PO; -POLY17PO28 PO; +POLY17PO52 PO
[2022-01-03] MEDS ORDERED: [UNRECOGNIZED DRUG - CODE] MM (23:10)
--- NOTE | 2022-01-03 23:16 | PHYS DOC ---
Past Medical History Past Medical History: Asthma, GERD Additional Past Medical Histor: GASTRITIS Past Surgical History: No Surgical History Smoking Status: Former Smoker Alcohol Use: None Drug Use: None General Adult EDM: Chief Complaint: DENTAL PROBLEM HPI: HPI: Patient is a 86 year old male who presents with left sided tongue pain for over two weeks. He reports associated sore throat. Patient has additional complaint of "burning" in his hands and feet that is worse at night. Ambulation nor touch make the pain worse. Patient denies fever, chills, nasal congestion, cough, joint pain. Review of Systems: Review of Systems: Constitutional: Denies fever, chills or generalized weakness Eyes: Denies change in visual acuity, visual field deficits or discharge HENT: See HPI Respiratory: Denies cough or shortness of breath Cardiovascular: Denies chest pain, palpitations or edema GI: Denies abdominal pain, nausea, vomiting, bloody stools or diarrhea : Denies dysuria or hematuria Musculoskeletal: Denies back pain or joint pain Integument: Denies rash or other skin lesion Neurologic: See HPI Heart Score: C/O Chest Pain: No Allergies: Allergies: Allergies Coded Allergies Type Severity Reaction Last Updated Verified No Known Drug Allergies 01/28/18 No Physical Exam: PE: Constitutional: Well developed, well nourished, no acute distress, non-toxic appearance. HENT: Normocephalic, atraumatic, bilateral external ears normal, oropharynx moist, left side tongue has rough appearing but flesh colored macules/papules c oncerning for malignancy. Eyes: EOMI, conjunctiva normal, no discharge. Neck: Normal range of motion, no stridor. Skin: Warm, dry, no erythema, no rash. Extremities: No tenderness, no cyanosis, no clubbing, ROM intact, no edema, capillary refill less than 2 seconds. Neurologic: Alert and oriented, normal motor function, normal sensory function, no focal deficits noted. Current Patient Data: Vital Signs: Vital Signs Date Time Temp Pulse Resp B/P (MAP) Pulse Ox O2 Delivery O2 Flow Rate FiO2 01/03/22 23:53 97.6 87 18 137/74 (95) 97 97.6 01/03/22 22:16 97.5 102 20 152/73 (99) 96 97.5 Course & Med Decision Making: Course & Med Decision Making Pertinent Labs and Imaging studies reviewed. (See chart for details) Patient is an 86-year-old male who presents with left-sided tongue pain and peripheral neuropathy. I advised patient to follow-up with his primary care provider regarding neuropathic pain and further evaluation for the source. However, the change to texture and growth on the left side of the patient's tongue is concerning for malignancy. I advised that he follow-up with ENT for further evaluation and management, which will likely include biopsy. Return precautions are provided. Patient understands and is agreeable to discharge plan. Dragon Disclaimer: Dragon Disclaimer: This electronic medical record was generated, in whole or in part, using a voice recognition dictation system. Departure Departure Impression: Primary Impression: Tongue abnormality Additional Impression: Peripheral neuropathic pain Disposition: HOME / SELF CARE / HOMELESS Condition: STABLE Referrals: WILMAR GAITAN MD (PCP) KEYANA RAMOS MD Patient Instructions: Cancer of the Tongue, Pain, Neuropathic Additional Instructions: You will need to have a biopsy of the painful growth on your tongue to evaluate/rule out malignancy. EMERGENCY DEPARTMENT GENERAL DISCHARGE INSTRUCTIONS Thank you for coming to [facility] Emergency Department (ED) to day and trusting us with you care. We trust that you had a positive experience in our Emergency Department. If you wish to speak to the department management, you may call the director at . YOUR FOLLOW UP INSTRUCTIONS ARE FOLLOWS: 1. Follow up with your primary care doctor. If you do not have a primary doctor, please ask for a resource list of physicians or clinics that may be able to assist you with follow up care. 2. The emergency provider has interpreted your imaging studies, if any were ordered. The radiology communication specialist also reviewed them. If there is a change in the findings, you will be notified in 48 hours when at all possible. 3. If a lab test or culture has been done, your results will be reviewed and you will be notified if you need a change in treatment. 4. Follow instructions verbalized to you and refer to the printouts if needed. ADDITIONAL INSTRUCTIONS AND INFORMATION: 1. Your care today has been supervised by a physician who is specially trained in emergency care. Many problems require more than one evaluation for a complete diagnosis and treatment. We recommend that you schedule your follow up appointment as recommended to ensure complete treatment of you illness or injury. If you are unable to obtain follow up care and continue to have a problem, or if your condition worsens, we recommend that you return to the ED. 2. We are not able to safely determine your condition over the phone nor are we able to give sound medical advice over the phone. For these safety reasons, if you call for medical advice we will ask you to come to the ED for further evaluation. 3. If you have any questions regarding these discharge instructions please call the ED at . SAFETY INFORMATION: In the interest of safety, wellness, and injury prevention; we encourage you to wear your seat belt, if you smoke; quite smoking, and we encourage family to use a protective helmet for bicycling and other sporting events that present an increased risk for head injury. IF YOUR SYMPTOMS WORSEN OR NEW SYMPTOMS DEVELOP, OR YOU HAVE CONCERNS ABOUT YOUR CONDITION; OR IF YOUR CONDITION WORSENS WHILE YOU ARE WAITING FOR YOUR FOLLOW UP APPOINTMENT; EITHER CONTACT YOUR PRIMARY CARE DOCTOR, THE PHYSICIAN WHOSE NAME AND NUMBER YOU WERE GIVEN, OR RETURN TO THE ED IMMEDIATELY. Scripts Phenol (ULCEREASE) 178 Ml Liquid 178 ML MM PRN 1-2XD PRN for PAIN, #1 BOTTLE Prov: BRIANA LA 01/03/22 BRIANA LA January 03, 2022 23:16
[2022-01-03 23:53] VITALS: BP 137/74
== END 2022-01-03 23:53 | disposition home or self-care (01) ==
LOC: ER 21:24
DX: K14.8 Other diseases of tongue (principal); G62.9 Polyneuropathy, unspecified; J45.909 Unspecified asthma, uncomplicated; K21.9 Gastro-esophageal reflux disease without esophagitis; Z87.891 Personal history of nicotine dependence
CPT/HCPCS: 99282